=== PATIENT | male | born 1935 | race Caucasian/White ===

== ENCOUNTER 2018-01-08 14:24 | Observation (INO) | payer MEDICARE, OTHER ==
[~2018-01-08 14:24] MED LIST: ISOVUE-370 76%-LOCM 1 ML ONE
[2018-01-08 15:09] LABS: #Eosinphils 0.3 thou/uL (0.0-0.7); #Lymphocytes 1.3 thou/uL (1.20-3.40); #Monocytes 0.5 thou/uL (0.11-0.59); #Neutrophils 4.7 thou/uL (1.40-6.50); %Basophils 0.6 % (0.0-1.0); %Eosinophils 4.2 % (0.0-10.0); %Lymphocytes 19.1 % (21.0-51.0); %Monocytes 7.6 % (0.0-10.0); %Neutrophils 68.5 % (42.0-75.0); Mean Corpuscular HGB CONC 33.6 g/dL (32.0-36.0); Mean Corpuscular Hemoglobin 33.6 pg (27.0-31.0); Mean Corpuscular Volume 99.7 fl (80.0-94.0); Mean Platelet Volume 6.7 fL (7.4-10.4); Platelet Count 133 thou/uL (130-400); RBC Distribution Width 12.1 % (11.5-14.5); Red Blood Cell (RBC) Count 4.16 mill/uL (4.70-6.10); White Blood Cell (WBC) Count 6.9 thou/uL (4.8-10.8)
[2018-01-08 15:30] LABS: ALT (SGPT) 43 U/L (8-55); AST (SGOT) 34 U/L (5-34); Albumin 3.9 g/dL (3.4-4.8); Alkaline Phosphatase 61 U/L (40-150); Anion Gap 13 mmol/L (10-20); BUN (Urea Nitrogen) 27 mg/dL (8.4-25.7); Bilirubin, Total 0.6 mg/dL (0.2-1.2); Calc. Creatinine Clearance 0 mL/min (70-130); Calcium 9.6 mg/dL (7.8-10.44); Carbon Dioxide 25 mmol/L (23-31); Chloride 105 mmol/L (98-107); Estimated GFR-MDRD 65; Glucose 129 mg/dL (83-110); Potassium 4.4 mmol/L (3.5-5.1); Protein, Total 6.9 g/dL (5.8-8.1); Sodium 139 mmol/L (136-145)
[2018-01-08 15:35] LABS: Troponin I 0.011 ng/mL (< 0.028)
[2018-01-08 15:44] LABS: CKMB 21.6 ng/mL (0-6.6)
--- NOTE | 2018-01-08 15:52 | RAD ---
CHEST 1 VIEW: Date: 01/08/18 HISTORY: Chest pain. COMPARISON: Chest radiograph dated 03/11/14. FINDINGS: Heart size mildly enlarged. Chronic interstitial markings in the lung bases. No pneumothorax. No larg e effusion. No acute focal osseous abnormality. IMPRESSION: Chronic changes and cardiomegaly. POS: OFF
--- NOTE | 2018-01-08 17:42 | CT ---
CTA THORAX WITH CONTRAST: 01/08/18 (Computed Tomographic Angiography, chest(noncoronary) with contrast material, and image postprocessin g) (PE protocol) HISTORY: 82-year-old male with acute chest pain and dyspnea. TECHNIQUE: IV injection of iodinated contrast. Scan acquisition timing attempted to coincide with iodinated contrast bolus reaching maximal density in pulmonary arteries. 3D MIP reconstructions. FINDINGS: There is gynecomastia. No evidence of pulmonary thromboembolism. No thoracic aortic aneurysm or disse ction. There is ectasia and tortuosity of the thoracic aorta. No consolidation, ground glass densitie s, pleural effusion, or pneumothorax. Tiny noncalcified pulmonary nodule approximately 3-4 mm in size at the far lateral aspect of right middle lobe, abutting the undersurface of the right minor fissure , is probably an intrapulmonary lymph node. Borderline or mild cardiomegaly. There is multilevel high grade degenerative disc disease throughout the thoracic spine. 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 No mediastinal or hilar lymphadenopathy. No pericardial effusion. IMPRESSION: 1. No pulmonary thromboembolism. 2. Ectasia, tortuosity, and atherosclerosis of the thoracic aorta. 3. Thoracic spondylosis. 4. Gynecomastia. herminia[] POS: COLLETTE
[2018-01-08] MEDS ORDERED: Aspirin 325 MG TAB ONE (21:02)
[2018-01-08 21:04] LABS: Troponin I Less than 0.010 ng/mL (< 0.028)
[2018-01-08 21:07] LABS: CKMB 16.6 ng/mL (0-6.6); Critical Call CKMBM RESULT DECREASING
[2018-01-08] MEDS ORDERED: Gabapentin 400 MG CAP PO SCH (21:15)
[2018-01-08] MEDS ORDERED: Acetaminophen 325 MG TAB PO PRN ×2 (22:11→22:12)
[2018-01-08] MEDS ORDERED: HYDROcodone/Acetaminophen 5/325 mg Tablet PO PRN (22:11)
[2018-01-08] MEDS ORDERED: Ondansetron ODT 4 MG TAB SL PRN (22:12)
[2018-01-08] MEDS ORDERED: Ondansetron HCl/PF 4 MG/2 ML Vial IVP PRN (22:12)
[2018-01-08] MEDS ORDERED: Enoxaparin Sodium 30 MG/0.3 ML SYRINGE SC SCH (22:15)
--- NOTE | 2018-01-09 01:35 | HP ---
DATE OF ADMISSION: 01/08/2018 TIME OF SERVICE: 22:15 CHIEF COMPLAINT: Chest discomfort, chest pain. HISTORY OF PRESENT ILLNESS: Mr. Landers is an 82-year-old white male with history of hypertension, juan diego ropathy, BPH. He also relates a history of coronary artery disease followed by Dr. Jake Levin, hypothyroidism, seizure disorder, who presents to the emergency department with complaints of chest p ain starting at 08:21. Patient states he got up in the morning, was doing his normal activities with out any difficulty and developed left-sided chest pain near the midclavicular area. He stated he fel t like a sharp pain. He had been lifting boxes the day before, initially thought he just strained so mething. The pain seemed to resolve on its own without much intervention. Then, 01/08 on the day of admission, the patient developed worsening chest pain seemed to be worse with deep inspiration, but w as certainly more intense than the day before. Denies any shortness of breath, no PND, orthopnea, no sweats or diaphoresis, no nausea or vomiting. The patient himself denies previous cardiac history; however, he has seen Dr. Levin and did have an echocardiogram that showed what sounds like apical hypokinesis. He does have some degree of coronary artery disease. Workup in the emergency department was negative except for an elevated CK and a slightly increased CK -MB with negative troponins. We subsequently called for admit. PAST SURGICAL HISTORY: Significant for, 1. TURP. 2. Back surgeries. 3. Bilateral cataract replacement. 3. Left shoulder repair. 4. Hernia repair. 5. PTCA about 5 years ago, he is not sure if he had a stent or not. HOME MEDICATIONS: 1. Tramadol 50 mg p.o. t.i.d. p.r.n. 2. Vitamin B6 of 100 mg daily. 3. CoQ10 of 200 mg p.o. q.p.m. 4. Atorvastatin 40 mg p.o. at bedtime. 5. Fish oil 300 mg p.o. at bedtime. 6. Toprol XL 25 mg p.o. at bedtime. 7. Levothyroxine 75 mcg daily. 8. Ipratropium nasal spray 0.03% two puffs nasal b.i.d. 9. Gabapentin 400 mg p.o. q.i.d. 10. Cardura 8 mg p.o. at bedtime. 11. Aspirin 81 mg daily. 12. Donepezil 10 mg p.o. q.p.m. ALLERGIES: SULFA AND CARBAMAZEPINE. Does not recall what the reactions were. He thinks that the ra sh. FAMILY HISTORY: Negative for clotting or bleeding disorder, no immune dysfunction. SOCIAL HISTORY: Negative for habits x3. He is . His daughter does accompany him. His was recently admitted to the hospital, I cared for her then. She is at home and requires a large robyn unt of assistance. REVIEW OF SYSTEMS: A 10-point review of systems was performed and is negative for all systems except as stated as per HPI. PHYSICAL EXAMINATION: VITAL SIGNS: Temperature current is 97.6, pulse 61, blood pressure 175/97 initially, now down to 142 /67, respiratory 18, satting 94% on room air, 99% on 2 liters nasal cannula. GENERAL: He is awake. He is alert. He is oriented x3, well-developed, well-nourished, age appropri ate appearing elderly white male, appears to be in no acute distress. HEENT: Normocephalic and atraumatic. Pupils equal, round, react to light bilaterally, mucous membra enrique are moist. No visible lesions or thrush. NECK: Supple without lymphadenopathy, JVD, or thyromegaly. He has normal carotid upstrokes without bruits. LUNGS: Clear to auscultation bilaterally. No wheezes, no rales, or rhonchi. Good air movement. Sy mmetric chest excursion. There is no prolonged expiratory phase. CARDIOVASCULAR: Normal cardiac and regular. He has normal S1 and S2. No S3, S4. He has a holosyst olic murmur heard at the apex, was slightly hard, now just a little better at the right upper sternal border. I do not hear any systolic ejection murmurs. ABDOMEN: Soft. There is nontender, nondistended. He has got good bowel sounds in all four quadrant s. There is no rebound, rigidity, or guarding. EXTREMITIES: No cyanosis or clubbing. He does have 1+ edema in bilateral extremities in the tibia l evel. He has got thready palpable pulses in the dorsalis pedis and posterior tibial arteries. SKIN: Otherwise warm, moist, and well perfused. There are no other rashes or lesions. MUSCULOSKELETAL: Normal to inspection. He has no joint inflammation or palpable effusions. NEUROLOGIC: Cranial nerves II-XII are grossly intact. No focal neurologic deficits. LABORATORY DATA: Sodium 139, potassium 4.4, chloride 105, bicarb 25, BUN 27, creatinine 1.08, glucos e 129, calcium 9.6. Liver function fairly within normal limits. CBC showed a white count of 6.9 with normal differential, hemoglobin is 14.0, hematocrit is 41.5, and platelet count is 133,000. CK was slightly elevated at 442, CK-MB was 21.6 and repeat down to 16.6. Troponin I was 0.011 and no rmal and repeat was less than 0.010. BNP was slightly elevated at 149.4. D-dimer was slightly eleva nakul at 0.80. RADIOGRAPHIC STUDIES: Chest x-ray showed chronic changes and cardiomegaly. CT angiogram was negativ e for pulmonary embolus. ASSESSMENT AND PLAN: 1. Chest pain, likely noncardiac. Patient does have a history of coronary artery disease. We will place him on protective medicines, get serial cardiac biomarkers, and with echocardiogram in the [facility]. He was due for next week in Dr. Levin's office. We will ask Dr. Levin to see him. 2. History of hypertension. Patient will be on nitro paste. We will continue home medication inclu ding Toprol-XL and Cardura. 3. History of peripheral neuropathy, continue his gabapentin. 4. History of BPH on Cardura. 5. History of coronary artery disease, normal troponins at this time. We will watch him on the elisabet tor and watch his serial biomarkers. 6. Hypothyroidism on levothyroxine daily. We will check morning TSH. The patient was placed in observation on the observation unit. We will hold off and order any stress testing to be seen by Dr. Levin, but we will go and order the echo to be done in the morning.
[2018-01-09] MEDS: Nitroglycerin 2% Ointment 1 INCH/1 GM Packet TOP SCH ×3 (03:14→15:43)
[2018-01-09 04:33] LABS: #Basophils 0.1 thou/uL (0.0-0.2); #Eosinphils 0.4 thou/uL (0.0-0.7); #Lymphocytes 1.7 thou/uL (1.20-3.40); #Monocytes 0.6 thou/uL (0.11-0.59); #Neutrophils 4.9 thou/uL (1.40-6.50); %Basophils 0.7 % (0.0-1.0); %Eosinophils 5.8 % (0.0-10.0); %Lymphocytes 21.9 % (21.0-51.0); %Monocytes 7.9 % (0.0-10.0); %Neutrophils 63.7 % (42.0-75.0); Hemoglobin 14.1 g/dL (14.0-18.0); Mean Corpuscular HGB CONC 34.4 g/dL (32.0-36.0); Mean Corpuscular Hemoglobin 33.9 pg (27.0-31.0); Mean Corpuscular Volume 98.6 fl (80.0-94.0); Mean Platelet Volume 6.5 fL (7.4-10.4); Platelet Count 125 thou/uL (130-400); RBC Distribution Width 12.2 % (11.5-14.5); Red Blood Cell (RBC) Count 4.17 mill/uL (4.70-6.10); White Blood Cell (WBC) Count 7.7 thou/uL (4.8-10.8)
[2018-01-09 04:50] LABS: Anion Gap 11 mmol/L (10-20); BUN (Urea Nitrogen) 22 mg/dL (8.4-25.7); CK (CPK) 304 U/L (30-200); Calc. Creatinine Clearance 92 mL/min (70-130); Calcium 9.4 mg/dL (7.8-10.44); Carbon Dioxide 27 mmol/L (23-31); Chloride 107 mmol/L (98-107); Cholesterol 131 mg/dl (< 200 Desired); Estimated GFR-MDRD 75; Glucose 92 mg/dL (83-110); HDL Cholesterol 44 mg/dL (>60 Neg Risk); LDL Cholesterol, Calculated 70 mg/dL; Magnesium 2.3 mg/dL (1.6-2.6); Sodium 141 mmol/L (136-145); Triglycerides 83 mg/dL (Less than 150)
[2018-01-09] MEDS ORDERED: Levothyroxine Sodium 75 MCG TAB PO SCH (06:00)
[2018-01-09] MEDS ORDERED: Naproxen 500 MG TAB PO SCH (09:00)
[2018-01-09] MEDS ORDERED: Aspirin 325 MG TAB PO SCH (09:00)
[2018-01-09] MEDS ORDERED: Famotidine 20 MG TAB PO SCH (09:00)
[2018-01-09] MEDS: Ipratropium Bromide 0.03% Nasal Inhaler 30 ml Bottle EA NARE SCH ×2 (09:16→15:42)
[2018-01-09] MEDS: Gabapentin 400 MG CAP PO SCH ×3 (09:16→15:45)
[2018-01-09 15:54] VITALS: TEMP 97.3
[2018-01-09] MEDS ORDERED: Regadenoson 0.4 MG/5 ML SYRINGE ONE (15:59)
[2018-01-09] MEDS ORDERED: Simvastatin 5 MG TAB PO SCH (17:00)
--- NOTE | 2018-01-09 17:11 | NM ---
NUCLEAR MEDICINE MYOCARDIAL PERFUSION SCAN 01/09/18 HISTORY: Chest pain. TECHNIQUE: SPECT imaging of the left ventricular myocardium is obtained during rest and stress following the int ravenous administration of 27.0 and 9.0 millicuries technetium 99m labeled Sestamibi respectively. FINDINGS: There is a small fixed defect at the level of the cardiac apex which could represent an area of prior infarction or physiologic thinning. The latter is favored as left ventricular wall motion appears no rmal. No reversible defect is seen. Left ventricular ejection fraction is 72%. TID is 1.1. EDV is 109 mL and ESV is 30 mL. IMPRESSION: Small fixed defect at the cardiac apex. No reversible defect seen. Normal left ventricular wall motio n and ejection fraction. POS: COLLETTE
[2018-01-09 17:18] VITALS: BP 150/77
[2018-01-09] MEDS ORDERED: Doxazosin Mesylate 4 MG TAB PO SCH (21:00)
--- NOTE | 2018-01-09 22:19 | DIS ---
DATE OF ADMISSION: 01/08/2018 DATE OF DISCHARGE: 01/09/2018 PRIMARY CARE PHYSICIAN: Jaja Medina MD DISCHARGE DIAGNOSIS: Chest pain. CONDITION OF PATIENT ON THE DAY OF DISCHARGE: Stable. I assessed Mr. Landers on the day of discharge. He denies any chest pain or shortness of breath. Vital signs are stable. S1 and S2 are heard, reg ular. Lungs are clear to auscultation bilaterally. DISCHARGE MEDICATIONS: No change was made to his preadmission home medications as dictated on histor y and physical note from 01/08/2018. HOSPITAL COURSE: Mr. Landers is a pleasant 82-year-old gentleman who was admitted to [facility] on observation status on 01/08/[address] angiogram of the chest did n ot reveal any pulmonary thromboembolism. He had ectasia, tortuosity, and atherosclerosis of the thor acic aorta, thoracic spondylosis, and gynecomastia. He had a nuclear stress test on 01/09/2018, which showed a small fixed defect at the cardiac apex. T here was no reversible defect. Left ventricle ejection fraction was 72%. He was seen by Cardiology Service, Dr. Levin, and is being discharged home in a stable condition. Many thanks for allowing me to participate in your patient's care. Please feel free to contact me wi th any questions or concerns. DISCHARGE DESTINATION: Home.
--- NOTE | 2018-01-26 00:25 | EKG ---
Test Reason : Blood Pressure : / mmHG Vent. Rate : 062 BPM Atrial Rate : 062 BPM P-R Int : 332 ms QRS Dur : 070 ms QT Int : 402 ms P-R-T Axes : 056 011 -02 degrees QTc Int : 408 ms Sinus rhythm with 1st degree A-V block Otherwise normal ECG Confirmed by EVER ANGELO ([id number]), web content editor WANDER JULES ([id number]) on 01/26/2018 12:24:30 AM Referred By: Confirmed By:EVER ANGELO
--- NOTE | 2018-02-27 13:36 | STRESS ---
Acquisition Time: 2018-01-09 13:43:02 Total Exercise Time: 00:01:00 Test Indications: CHEST PAIN Medications: Protocol: LEXISCAN Max HR: 086 BPM 62% of Pred: 138 BPM Max BP: 170/070 mmHG Max Work Load: 1.0 METS RESTING ECG: SINUS BRADYCARDIA AT 57 BPM WITH FIRST DEGREE AV BLOCK SYMPTOMS: NONE NORMAL BP RESPONSE ECTOPY: NONE ECG STRESS: NO SIGNIFICANT CHANGES INTERPRETATION: NEGATIVE ECG/AWAIT NUCLEAR IMAGES FOR DEFINITIVE DIAGNOSIS Confirmed by DR. Kumar ALANIZ ([id number]), script editor HU LEWIS ([id number]) on 02/27/2018 1:35:47 PM Referred By: MD Juan TAFOYA Confirmed By:DR. Kumar ALANIZ
== END 2018-01-09 18:37 | disposition home or self-care (01) ==
LOC: ERS 14:24 → 2SW 22:07
PROVIDERS: ADMIT Internal Medicine; ATTEND Internal Medicine
DX: R07.89 Other chest pain (principal); I10 Essential (primary) hypertension; I25.10 Atherosclerotic heart disease of native coronary artery without angina pectoris; E03.9 Hypothyroidism, unspecified; G40.909 Epilepsy, unspecified, not intractable, without status epilepticus; G62.9 Polyneuropathy, unspecified; N40.0 Benign prostatic hyperplasia without lower urinary tract symptoms; Z79.82 Long term (current) use of aspirin; Z79.891 Long term (current) use of opiate analgesic; Z79.1 Long term (current) use of non-steroidal anti-inflammatories (NSAID); Z79.899 Other long term (current) drug therapy; Z88.2 Allergy status to sulfonamides; Z88.8 Allergy status to other drugs, medicaments and biological substances; Z98.41 Cataract extraction status, right eye; Z98.42 Cataract extraction status, left eye; Z96.1 Presence of intraocular lens; Z95.5 Presence of coronary angioplasty implant and graft; Z98.890 Other specified postprocedural states
CPT/HCPCS: 71045; 71275; 78452; 80048; 80053; 80061; 82550 ×2; 82553 ×2; 83735; 83880; 84484 ×2; 85025 ×2; 85379; 93005; 93017; 93306; 97139; 99285; A9500; 36415; 96372; G0378; J1650; J2785

== ENCOUNTER 2018-04-15 10:15 | Outpatient (CLI) | payer MEDICARE, OTHER ==
[2018-04-15 12:22] LABS: Hemoglobin 14.1 g/dL (14.0-18.0); Mean Corpuscular HGB CONC 33.2 g/dL (32.0-36.0); Mean Corpuscular Hemoglobin 32.1 pg (27.0-31.0); Mean Corpuscular Volume 96.9 fL (78.0-98.0); Mean Platelet Volume 7.4 fL (7.4-10.4); Platelet Count 120 thou/uL (130-400); RBC Distribution Width 12.1 % (11.5-14.5); Red Blood Cell (RBC) Count 4.39 mill/uL (4.70-6.10); White Blood Cell (WBC) Count 5.7 thou/uL (4.8-10.8)
[2018-04-15 12:50] LABS: Anion Gap 13 mmol/L (10-20); BUN (Urea Nitrogen) 26 mg/dL (8.4-25.7); Calc. Creatinine Clearance 0 mL/min (70-130); Calcium 9.6 mg/dL (7.8-10.44); Carbon Dioxide 26 mmol/L (23-31); Chloride 104 mmol/L (98-107); Estimated GFR-MDRD 59; Glucose 108 mg/dL (83-110); Potassium 4.6 mmol/L (3.5-5.1); Sodium 138 mmol/L (136-145)
== END 2018-04-15 10:16 | disposition home or self-care (01) ==
LOC: LABBT 10:15
PROVIDERS: ATTEND Neurological Surgery
DX: Z01.818 Encounter for other preprocedural examination (principal); M48.061 Spinal stenosis, lumbar region without neurogenic claudication
CPT/HCPCS: 80048; 85027; 93005; 93010

== ENCOUNTER 2018-04-21 07:17 | Observation (INO) | payer MEDICARE, OTHER ==
[2018-04-15 10:28] VITALS: BMI 33.0
[2018-04-21] MEDS ORDERED: CEFAZOLIN/Water 2 GM/20 ML SYRINGE ONE (07:46)
[2018-04-21] MEDS ORDERED: Fentanyl 250 MCG/5 ML VIAL ONE (08:55)
[2018-04-21] MEDS ORDERED: ePHEDrine/0.9% NaCl/PF SYRINGE 50 mg/10 ml ONE ×2 (10:03→14:59)
[2018-04-21] MEDS ORDERED: Glycopyrrolate 0.2 MG/ML 5 ML SYRINGE ONE ×2 (10:03→14:59)
[2018-04-21] MEDS ORDERED: Ondansetron HCl/PF 4 MG/2 ML Vial IVP PRN ×3 (10:43→14:00)
[2018-04-21] MEDS ORDERED: Promethazine HCl 25 MG/ML VIAL IM PRN ×2 (10:43→13:13)
[2018-04-21] MEDS ORDERED: Promethazine HCl 25 MG/ML VIAL SLOW IVP PRN (10:43)
--- NOTE | 2018-04-21 11:04 | OP ---
DATE OF PROCEDURE: 04/21/2018 SURGEON: Hua Baltazar M.D. HOLLOW WARE MAKER: Marquita Davies PROCEDURE: Right L5-S1 laminectomy, facetectomy, and foraminotomy. PROCEDURE IN DETAIL: The patient was brought to the operating room and intubated, rolled in the pron e position on gel-filled chest rolls. The previous incision was reopened exposing L5 and S1 and our level was confirmed by x-ray and a very large right L5-S1 facet complex which was debrided extensivel y. An L5-S1 central laminectomy was performed and then turned to the right. We completely decompres sed the right L5-S1 lateral recess and the right L5 neural foramen. After complete decompression was secured, the wound was extensively irrigated, immaculate hemostasis was achieved. Vancomycin powder was applied and the wound was closed in anatomic layers.
[2018-04-21] MEDS ORDERED: diphenhydrAMINE 25 MG CAP PO PRN (13:13)
[2018-04-21] MEDS ORDERED: diphenhydrAMINE 50 MG/ML VIAL IVP PRN (13:13)
[2018-04-21] MEDS ORDERED: Promethazine 25 MG TAB PO PRN (13:13)
[2018-04-21] MEDS ORDERED: Mag-Al 1200 mg/1200 mg/30 ML UDCUP PO PRN (13:13)
[2018-04-21] MEDS ORDERED: HYDROcodone/Acetaminophen 10/325 mg Tablet PO PRN ×2 (13:13)
[2018-04-21] MEDS ORDERED: tiZANidine HCl 4 MG TAB PO PRN (13:13)
[2018-04-21] MEDS ORDERED: traMADol HCl 50 MG TAB PO PRN ×2 (13:13)
[2018-04-21] MEDS ORDERED: Promethazine HCl 12.5 MG SUPP PR PRN (13:13)
[2018-04-21] MEDS ORDERED: Milk Of Magnesia 30 ML UDCUP PO PRN (13:13)
[2018-04-21] MEDS ORDERED: Morphine 4 MG/ML Carpuject SLOW IVP PRN (13:13)
[2018-04-21] MEDS ORDERED: Senokot 8.6 MG TAB PO PRN (14:00)
[2018-04-21] MEDS ORDERED: hydrALAZINE 20 MG/ML VIAL SLOW IVP PRN (14:00)
[2018-04-21] MEDS ORDERED: Benzonatate 100 MG CAP PO PRN (14:00)
[2018-04-21] MEDS ORDERED: cloNIDine 0.1 MG TAB PO PRN (14:00)
[2018-04-21] MEDS ORDERED: traZODone HCl 50 MG TAB PO PRN (14:00)
[2018-04-21] MEDS ORDERED: Diabetic Tussin 200 MG/10 ML UDCUP PO PRN (14:00)
[2018-04-21] MEDS ORDERED: Bisacodyl 5 MG TAB PO PRN (14:00)
[2018-04-21] MEDS ORDERED: Calcium Carbonate 500 MG ChewTAB PO PRN (14:00)
[2018-04-21] MEDS ORDERED: Loratadine 10 MG TAB PO PRN (14:00)
[2018-04-21] MEDS ORDERED: Acetaminophen 325 MG TAB PO PRN (14:00)
[2018-04-21] MEDS ORDERED: Nitroglycerin 0.4 MG TAB (25 Tab Bottle) SL PRN (14:00)
--- NOTE | 2018-04-21 14:15 | PDOC.PN ---
- Subjective Encounter Start Date: 04/21/18 Encounter Start Time: 14:14 Subjective: pt gavin nd examined. IM team consulted for medical management. -: s/p Lumbar laminectomy today. no chest pain/SOB -: has been having some difficulty urination w starting. - Objective MAR Reviewed: Yes Vital Signs & Weight: Vital Signs (12 hours) Temp Pulse Resp BP Pulse Ox 04/21/18 12:30 97.5 F L 78 16 173/78 H 94 L Weight Weight 230 lb Additional Labs: labs reviewed Phys Exam - Physical Examination Constitutional: NAD HEENT: PERRLA, moist MMs, sclera anicteric, oral pharynx no lesions Neck: no nodes, no JVD, supple, full ROM Respiratory: no wheezing, no rales, no rhonchi, clear to auscultation bilateral Cardiovascular: RRR, no significant murmur, no rub Gastrointestinal: soft, non-tender, no distention, positive bowel sounds Musculoskeletal: no edema, pulses present Neurological: non-focal, normal sensation, moves all 4 limbs Psychiatric: normal affect, A&O x 3 Skin: no rash Dx/Plan (1) Urinary retention Code(s): R33.9 - RETENTION OF URINE, UNSPECIFIED Status: Acute (2) HTN (hypertension) Code(s): I10 - ESSENTIAL (PRIMARY) HYPERTENSION Status: Acute Qualifiers: Hypertension type: essential hypertension Qualified Code(s): I10 - Essential (primary) hypertension (3) CAD (coronary artery disease) Code(s): I25.10 - ATHSCL HEART DISEASE OF [place] CORONARY ARTERY W/O ANG PCTRS Status: Acute (4) Seizure disorder Code(s): G40.909 - EPILEPSY, UNSP, NOT INTRACTABLE, WITHOUT STATUS EPILEPTICUS Status: Acute (5) Neuropathy Code(s): G62.9 - POLYNEUROPATHY, UNSPECIFIED Status: Acute (6) BPH (benign prostatic hyperplasia) Code(s): N40.0 - BENIGN PROSTATIC HYPERPLASIA WITHOUT LOWER URINRY TRACT SYMP Status: Acute (7) S/P lumbar laminectomy Code(s): Z98.890 - OTHER SPECIFIED POSTPROCEDURAL STATES Status: Acute - Plan PT/OT, out of bed/ambulate, DVT proph w/SCDs If no urination ,will do PVR and Gorman if > 300 ml. -: BP very high.likley due to Sx few hours ago,restart Metoprolol w first dose -: restart rest of the home meds. reviewed -: am labs -: OT,PT,Rehab.Will follow * . Review of Systems - Review of Systems Constitutional: negative: fever, chills, sweats, weakness, malaise, other Eyes: negative: Pain, Vision Change, Conjunctivae Inflammation, Eyelid Inflammation, Redness, Other Respiratory: negative: Cough, Dry, Shortness of Breath, Hemoptysis, SOB with Excertion, Pleuritic Pain, Sputum, Wheezing Cardiovascular: negative: chest pain, palpitations, orthopnea, paroxysmal nocturnal dyspnea, edema, light headedness, other Gastrointestinal: negative: Nausea, Vomiting, Abdominal Pain, Diarrhea, Constipation, Melena, Hematochezia, Other Genitourinary: Retention. negative: Dysuria, Frequency, Incontinence, Hematuria , Other Musculoskeletal: negative: Neck Pain, Shoulder Pain, Arm Pain, Back Pain, Hand Pain, Leg Pain, Foot Pain, Other Skin: negative: Rash, Lesions, Dale, Bruising, Other Neurological: negative: Weakness, Numbness, Incoordination, Change in Speech, Confusion, Seizures, Other - Medications/Allergies Allergies/Adverse Reactions: Allergies Allergy/AdvReac Type Severity Reaction Status Date / Time carbamazepine [From Tegretol] Allergy Rash Verified 04/15/18 10:29 Sulfa (Sulfonamide Allergy Rash Verified 04/15/18 10:29 Antibiotics) Medications: Current Medications Acetaminophen (Tylenol) 650 mg PO Q4H PRN PRN Reason: Headache/Fever or Mild Pain Hydrocodone Bitart/Acetaminophen (Coello 10/325) 1 tab PO Q4H PRN PRN Reason: PAIN (1-3) Hydrocodone Bitart/Acetaminophen (Coello 10/325) 2 tab PO Q4H PRN PRN Reason: PAIN (4-6) Al Hydroxide/Mg Hydroxide (Maalox) 30 ml PO Q4H PRN PRN Reason: Heartburn or Indigestion Ascorbic Acid (Vitamin C) 500 mg PO 1200 ALIVIA Aspirin (Aspirin Chewable) 81 mg PO HS ALIVIA Atorvastatin Calcium (Lipitor) 40 mg PO HS ALIVIA Benzonatate (Tessalon) 100 mg PO Q4H PRN PRN Reason: Cough Bisacodyl (Dulcolax) 10 mg PO DAILYPRN PRN PRN Reason: Constipation Calcium Carbonate (Tums) 1,000 mg PO Q4H PRN PRN Reason: Heartburn or Indigestion Cefazolin Sodium (Ancef) 2 gm SLOW IVP Q8H [facility] Stop: 04/22/18 00:01 Cetirizine HCl (Zyrtec) 10 mg PO DAILY [facility] Clonidine (Catapres) 0.1 mg PO Q4H PRN PRN Reason: Systolic BP > 160 Diphenhydramine HCl (Benadryl) 25 mg PO Q6H PRN PRN Reason: Itching Diphenhydramine HCl (Benadryl) 25 mg IVP Q6H PRN PRN Reason: Itching Donepezil HCl (Aricept) 10 mg PO HS [facility] Guaifenesin (Robitussin Sf) 200 mg PO Q4H PRN PRN Reason: Cough Hydralazine HCl (Apresoline) 10 mg SLOW IVP Q4H PRN PRN Reason: Systolic BP > 170 Sodium Chloride (Normal Saline 0.9%) 1,000 mls @ 75 mls/hr IV .[id number] [facility] Ipratropium [place] (Atrovent 0.03%) ml EA NARE 0730,1700 [facility] Levothyroxine Sodium (Synthroid) 75 mcg PO DAILY [facility] Loratadine (Claritin) 10 mg PO DAILYPRN PRN PRN Reason: Sinus Symptoms Lysine (L-Lysine) 1,000 mg PO 0730,1700 [facility] Magnesium Hydroxide (Milk Of Magnesium) 30 ml PO Q12H PRN PRN Reason: Constipation Metoprolol Succinate (Toprol Xl) 50 mg PO DAILY [facility] Morphine Sulfate (Morphine) 2 mg SLOW IVP Q1H PRN PRN Reason: Moderate Breakthrough Pain Morphine Sulfate (Morphine Sulfate) 4 mg SLOW IVP Q1H PRN PRN Reason: SEVERE BREAKTHROUGH PAIN Nitroglycerin (Nitrostat) 0.4 mg SL Q5MIN PRN PRN Reason: Chest Pain Non-Formulary Medication (B-Complex With Vitamin C [B-Complex With Vitamin C]) 1 tablet PO 1700 [facility] Non-Formulary Medication (Cholecalciferol (Vitamin D3) [Vitamin D3]) 1,000 unit PO 1200 [facility] Non-Formulary Medication (Doxazosin Mesylate [Cardura]) 8 mg PO HS [facility] Non-Formulary Medication (Gabapentin [Gabapentin]) 1,200 mg PO 0730,12,17,21 [facility] Non-Formulary Medication (Lactobacillus Acidophilus [Acidophilus]) 1 cap PO 0730 [facility] Non-Formulary Medication ([place]-3 Fatty Acids [Fish Oil]) 900 mg PO HS [facility] Non-Formulary Medication (Ubidecarenone [Co Q-10]) 100 mg PO QPM [facility] Ondansetron HCl (Zofran) 4 mg IVP Q8H PRN PRN Reason: Nausea/Vomiting Ondansetron HCl (Zofran) 4 mg IVP Q6H PRN PRN Reason: Nausea/Vomiting Promethazine HCl (Phenergan) 12.5 mg IM Q4H PRN PRN Reason: Nausea/Vomiting Promethazine HCl (Phenergan) 12.5 mg PO Q4H PRN PRN Reason: Nausea/Vomiting Promethazine HCl (Phenergan Suppository) 12.5 mg W[place] Q4H PRN PRN Reason: Nausea/Vomiting Pyridoxine HCl (Vitamin B 6) 100 mg PO 1200 [facility] Senna (Senokot) 2 tab PO HSPRN PRN PRN Reason: Constipation Sodium Chloride (Flush - Normal Saline) 10 ml IVF Q12HR ALIVIA Sodium Chloride (Flush - Normal Saline) 10 ml IVF PRN PRN PRN Reason: Saline Flush Tizanidine HCl (Zanaflex) 4 mg PO Q6H PRN PRN Reason: MUSCLE SPASM Tramadol HCl (Ultram) 50 mg PO Q6H PRN PRN Reason: PAIN (1-3) Tramadol HCl (Ultram) 100 mg PO Q6H PRN PRN Reason: PAIN (4-6) Trazodone HCl (Desyrel) 50 mg PO HSPRN PRN PRN Reason: Insomnia
[2018-04-21] MEDS ORDERED: Dexamethasone 20 MG/5 ML VIAL ONE (14:59)
[2018-04-21] MEDS ORDERED: Ondansetron HCl/PF 4 MG/2 ML Vial ONE (14:59)
[2018-04-21] MEDS ORDERED: PROPOFOL 200 MG/20 ML VIAL ONE (14:59)
[2018-04-21] MEDS ORDERED: Lidocaine 1% PF 5 ML VIAL ONE (14:59)
[2018-04-21] MEDS ORDERED: PHENYLEPHRINE-NS 100 MCG/ML 10 ML SYRINGE ONE (14:59)
[2018-04-21] MEDS: Sodium Chloride 0.9% 1,000 ML IV SCH (15:00)
[2018-04-21] MEDS ORDERED: Gabapentin 400 MG CAP PO SCH ×2 (17:00→21:45)
[2018-04-21] MEDS ORDERED: Stress 600 With Zinc 1 TAB PO SCH (17:00)
[2018-04-21] MEDS: Lysine 500 MG TAB PO SCH (17:15)
[2018-04-21] MEDS: CEFAZOLIN/Water 2 GM/20 ML SYRINGE SLOW IVP SCH (17:59)
[2018-04-21] MEDS: Ipratropium Bromide 0.03% Nasal Inhaler 30 ml Bottle EA NARE SCH (18:02)
[2018-04-21] MEDS ORDERED: Doxazosin Mesylate 4 MG TAB PO SCH (21:00)
[2018-04-21] MEDS ORDERED: Donepezil HCl 10 MG TAB PO SCH (21:00)
[2018-04-21] MEDS ORDERED: Ubidecarenone 50 MG CAP PO SCH (21:00)
[2018-04-21] MEDS ORDERED: Atorvastatin Calcium 40 MG TAB PO SCH (21:00)
[2018-04-22] MEDS: CEFAZOLIN/Water 2 GM/20 ML SYRINGE SLOW IVP SCH (00:02)
[2018-04-22] MEDS: Sodium Chloride 0.9% 1,000 ML IV SCH (01:46)
[2018-04-22] MEDS ORDERED: Levothyroxine Sodium 75 MCG TAB PO SCH (06:00)
[2018-04-22 06:12] LABS: Anion Gap 13 mmol/L (10-20); BUN (Urea Nitrogen) 19 mg/dL (8.4-25.7); Calc. Creatinine Clearance 78 mL/min (70-130); Calcium 9.5 mg/dL (7.8-10.44); Carbon Dioxide 26 mmol/L (23-31); Chloride 102 mmol/L (98-107); Estimated GFR-MDRD 65; Glucose 134 mg/dL (83-110); Potassium 3.9 mmol/L (3.5-5.1); Sodium 137 mmol/L (136-145)
[2018-04-22 06:14] LABS: #Monocytes 0.9 thou/uL (0.11-0.59); #Neutrophils 11.1 thou/uL (1.40-6.50); %Basophils 0.2 % (0.0-1.0); %Eosinophils 0.3 % (0.0-10.0); %Lymphocytes 7.7 % (21.0-51.0); %Monocytes 6.8 % (0.0-10.0); Hemoglobin 13.4 g/dL (14.0-18.0); Mean Corpuscular HGB CONC 32.7 g/dL (32.0-36.0); Mean Corpuscular Hemoglobin 31.9 pg (27.0-31.0); Mean Corpuscular Volume 97.5 fL (78.0-98.0); Mean Platelet Volume 6.8 fL (7.4-10.4); Platelet Count 142 thou/uL (130-400); RBC Distribution Width 12.2 % (11.5-14.5)
[2018-04-22] MEDS: Gabapentin 400 MG CAP PO SCH ×2 (06:42→11:46)
[2018-04-22] MEDS: Ipratropium Bromide 0.03% Nasal Inhaler 30 ml Bottle EA NARE SCH (06:42)
[2018-04-22] MEDS: Lysine 500 MG TAB PO SCH (06:46)
[2018-04-22] MEDS ORDERED: Lactinex Tablet PO SCH (07:30)
[2018-04-22] MEDS ORDERED: Loratadine 10 MG TAB PO SCH (09:00)
[2018-04-22] MEDS ORDERED: Fish Oil 1,000 MG CAP PO SCH (09:00)
[2018-04-22 11:42] VITALS: BP 123/75; TEMP 98.7
[2018-04-22] MEDS ORDERED: Ascorbic Acid 500 mg Chewable Tablet PO SCH (12:00)
[2018-04-22] MEDS ORDERED: pyridOXINE 50 MG (B6) TAB PO SCH (12:00)
== END 2018-04-22 12:41 | disposition home or self-care (01) ==
LOC: SDC 07:17 → SURG B 11:31
PROVIDERS: ADMIT Neurological Surgery; ATTEND Neurological Surgery
PROC: 01NB0ZZ Release Lumbar Nerve, Open Approach (ICD-10-PCS; principal; 2018-04-21)
DX: M48.061 Spinal stenosis, lumbar region without neurogenic claudication (principal); M51.36 Other intervertebral disc degeneration, lumbar region; R33.9 Retention of urine, unspecified; G40.909 Epilepsy, unspecified, not intractable, without status epilepticus; G62.9 Polyneuropathy, unspecified; I25.10 Atherosclerotic heart disease of native coronary artery without angina pectoris; I10 Essential (primary) hypertension; E78.5 Hyperlipidemia, unspecified; N40.0 Benign prostatic hyperplasia without lower urinary tract symptoms; Z79.82 Long term (current) use of aspirin; Z79.1 Long term (current) use of non-steroidal anti-inflammatories (NSAID); Z79.899 Other long term (current) drug therapy; Z88.2 Allergy status to sulfonamides; Z88.8 Allergy status to other drugs, medicaments and biological substances; Z98.890 Other specified postprocedural states
CPT/HCPCS: 63047; 63048; 76001; 80048; 85025; 96374; 96375; 96376; 97116; 97139; 97530; G0378; G8978; G8979; 36415; A4216; J0131; J0360; J1100; J2001; J2405; J2704; J3010; J3370

== ENCOUNTER 2018-08-28 13:25 | Outpatient (CLI) | payer MEDICARE, OTHER ==
[2018-08-28] MEDS ORDERED: Gadobenate Dimeglumine 529 MG/1 ML (20ML VIAL) ONE (16:34)
--- NOTE | 2018-08-28 19:18 | MRI ---
MRI OF THE LUMBAR SPINE WITH AND WITHOUT CONTRAST: 08/28/18 Reference made to 08/02/16 exam. CLINICAL INDICATION: Lumbar radiculopathy. FINDINGS: Diffuse marrow heterogeneity is present with multilevel end plate irregularity, Schmorl's node format ion and chronic mild degenerative height loss of multiple lumbar segments. There is multilevel promin ent disc osteophyte formation and multilevel, bilateral degenerative facet hypertrophy, moderate to s evere in degree, greatest inferiorly. There is posterior decompression of the L3-4 through L5-S1 jim on. There is degenerative appearing marrow edema of the lumbar segments. L5-S1: There is moderate narrowing of the terminal thecal sac due to disc osteophyte formation. There is moderate left and mild to moderate right neural foraminal narrowing. L4-5: Broad based disc osteophyte results in moderate central canal stenosis when combined with bilat eral degenerative facet hypertrophy. There is moderate right and mild to moderate left neural foramin al narrowing. L3-4: Moderate to severe central canal stenosis is due to disc osteophyte and bilateral degenerative facet hypertrophy. Narrowing is predominantly in a transverse orientation given the posterior decompr ession. Moderate to severe right and moderate left neural foraminal stenosis is present. L2-3: There is mild central canal stenosis with a broad based disc osteophyte. Mild to moderate bilat eral neural foraminal narrowing present. L1-2: There is moderate central canal stenosis due to broad based disc osteophyte with mild to modera te bilateral neural foraminal narrowing. The conus medullaris terminates at the inferior L4 level. There is evidence of epidural fibrosis at the operative site which is most pronounced at L5-S1 which circumferentially encases the terminal thecal sac more notably posteriorly and to the right. This loaiza s encompass the right nerve root. From the subarticular and foraminal zones. IMPRESSION: Extensive multilevel degenerative changes at the postoperative lumbar spine. There is prominent epidural fibrosis inferiorly which does encase the postoperative thecal sac most n otably at L5-S1 as well as encasement of the right traversing S1 nerve root as well as the right L5 n erve root. POS: COLLETTE
== END 2018-08-28 13:26 | disposition home or self-care (01) ==
LOC: TBSIIMAG 13:25
PROVIDERS: ATTEND Neurological Surgery
DX: M47.26 Other spondylosis with radiculopathy, lumbar region (principal); G96.19 Other disorders of meninges, not elsewhere classified; Z98.890 Other specified postprocedural states
CPT/HCPCS: 72158

== ENCOUNTER 2019-05-08 15:03 | Outpatient (CLI) | payer MEDICARE, OTHER | END 2019-05-08 15:04 | disposition home or self-care (01) | LOC: CTENTCT 15:03 | PROVIDERS: ATTEND Specialist | DX: J31.0 Chronic rhinitis (principal) | CPT/HCPCS: 70486 ==

== ENCOUNTER 2021-04-06 15:56 | Outpatient (CLI) | payer MEDICARE, OTHER | END 2021-04-06 15:57 | disposition home or self-care (01) | LOC: BICRAD 15:56 | PROVIDERS: ATTEND Internal Medicine | DX: M25.561 Pain in right knee (principal) ==

== ENCOUNTER 2021-09-12 08:41 | Outpatient (CLI) | payer MEDICARE, OTHER | END 2021-09-12 08:42 | disposition home or self-care (01) | LOC: BICRAD 08:41 | PROVIDERS: ATTEND Internal Medicine | DX: M54.2 Cervicalgia (principal); M47.812 Spondylosis without myelopathy or radiculopathy, cervical region; M43.12 Spondylolisthesis, cervical region | CPT/HCPCS: 72040 ==

== ENCOUNTER 2021-10-05 09:12 | Outpatient (CLI) | payer MEDICARE, OTHER | END 2021-10-05 09:13 | disposition home or self-care (01) | LOC: MRI 09:12 | PROVIDERS: ATTEND Internal Medicine | DX: M47.22 Other spondylosis with radiculopathy, cervical region (principal); M48.02 Spinal stenosis, cervical region; M50.11 Cervical disc disorder with radiculopathy, high cervical region | CPT/HCPCS: 72141 ==

== ENCOUNTER 2022-03-21 13:06 | Inpatient (IN) | payer MEDICARE, OTHER ==
[2022-03-21] MEDS ORDERED: Aspirin Chewable 81 MG TAB ONE (13:41)
[2022-03-21 13:54] LABS: #Eosinphils 0.2 thou/uL (0.0-0.7); #Lymphocytes 0.9 thou/uL (1.20-3.40); #Monocytes 0.5 thou/uL (0.11-0.59); #Neutrophils 5.4 thou/uL (1.40-6.50); %Basophils 0.4 % (0.0-1.0); %Eosinophils 2.6 % (0.0-10.0); %Lymphocytes 12.8 % (21.0-51.0); %Monocytes 6.8 % (0.0-10.0); %Neutrophils 77.4 % (42.0-75.0); Hemoglobin 9.4 g/dL (14.0-18.0); Mean Corpuscular Volume 87.5 fL (78.0-98.0); Mean Platelet Volume 6.5 fL (7.4-10.4); Platelet Count 183 thou/uL (130-400); RBC Distribution Width 13.8 % (11.5-14.5); Red Blood Cell (RBC) Count 3.36 mill/uL (4.70-6.10)
[2022-03-21 14:21] LABS: ALT (SGPT) 27 U/L (8-55); AST (SGOT) 23 U/L (5-34); Albumin 3.9 g/dL (3.4-4.8); Alkaline Phosphatase 69 U/L (40-110); Anion Gap 12 mmol/L (10-20); BUN (Urea Nitrogen) 17 mg/dL (8.4-25.7); Bilirubin, Total 0.7 mg/dL (0.2-1.2); CK (CPK) 162 U/L (30-200); Calc. Creatinine Clearance 0 mL/min (70-130); Calcium 9.1 mg/dL (7.8-10.44); Carbon Dioxide 28 mmol/L (23-31); Chloride 101 mmol/L (98-107); Globulin 3.1 g/dL (2.4-3.5); Glucose 104 mg/dL (83-110); Lipase 22 U/L (8-78); Potassium 4.7 mmol/L (3.5-5.1); Sodium 136 mmol/L (136-145)
[2022-03-21 16:23] LABS: Reticulocyte Count 1.9 % (0.5-1.5)
[2022-03-21 16:33] LABS: INR-International Normal Ratio 1.1; PTT 33.9 sec (22.9-36.1); Prothrombin Time 13.9 sec (12.0-14.7)
[2022-03-21 16:48] LABS: Troponin I 0.013 ng/mL (< 0.028)
[2022-03-21 17:46] LABS: Iron Binding Capacity, Total 368 mcg/dL (261-462)
[2022-03-21 17:47] LABS: Iron 25 ug/dL (65-175)
[2022-03-21] MEDS ORDERED: Electrolyte Replacement Protocol FS PRN (18:45)
[2022-03-21] MEDS ORDERED: Electrolyte Replacement Protocol 1 EACH FS SCH (18:45)
[2022-03-21 20:36] LABS: Troponin I 0.013 ng/mL (< 0.028)
[2022-03-21] MEDS ORDERED: Doxazosin Mesylate 4 MG TAB PO SCH (21:00)
[2022-03-21] MEDS: Gabapentin 400 MG CAP PO SCH (21:52)
[2022-03-21] MEDS: Donepezil HCl 10 MG TAB PO SCH (21:53)
[2022-03-22 04:21] LABS: #Eosinphils 0.3 thou/uL (0.0-0.7); #Lymphocytes 1.2 thou/uL (1.20-3.40); #Monocytes 0.6 thou/uL (0.11-0.59); #Neutrophils 4.2 thou/uL (1.40-6.50); %Basophils 0.7 % (0.0-1.0); %Eosinophils 4.3 % (0.0-10.0); %Lymphocytes 19.2 % (21.0-51.0); %Monocytes 9.2 % (0.0-10.0); %Neutrophils 66.6 % (42.0-75.0); Mean Corpuscular HGB CONC 32.3 g/dL (32.0-36.0); Mean Corpuscular Hemoglobin 28.4 pg (27.0-31.0); Mean Corpuscular Volume 87.9 fL (78.0-98.0); Mean Platelet Volume 6.3 fL (7.4-10.4); Platelet Count 175 thou/uL (130-400); RBC Distribution Width 13.8 % (11.5-14.5); Red Blood Cell (RBC) Count 3.16 mill/uL (4.70-6.10); White Blood Cell (WBC) Count 6.4 thou/uL (4.8-10.8)
[2022-03-22 04:47] LABS: ALT (SGPT) 22 U/L (8-55); AST (SGOT) 19 U/L (5-34); Albumin 3.5 g/dL (3.4-4.8); Alkaline Phosphatase 62 U/L (40-110); Anion Gap 9 mmol/L (10-20); BUN (Urea Nitrogen) 17 mg/dL (8.4-25.7); Bilirubin, Total 0.6 mg/dL (0.2-1.2); Calc. Creatinine Clearance 83 mL/min (70-130); Calcium 8.8 mg/dL (7.8-10.44); Carbon Dioxide 29 mmol/L (23-31); Chloride 103 mmol/L (98-107); Globulin 2.7 g/dL (2.4-3.5); Glucose 100 mg/dL (83-110); Magnesium 2.3 mg/dL (1.6-2.6); Potassium 4.1 mmol/L (3.5-5.1); Protein, Total 6.2 g/dL (5.8-8.1); Sodium 137 mmol/L (136-145)
[2022-03-22] MEDS: Furosemide 40 MG/4 ML VIAL SLOW IVP SCH ×2 (06:22→15:48)
[2022-03-22] MEDS: Levothyroxine Sodium 75 MCG TAB PO SCH (06:22)
[2022-03-22] MEDS: Gabapentin 400 MG CAP PO SCH ×4 (06:35→20:51)
[2022-03-22] MEDS ORDERED: Lysine 500 MG TAB PO SCH ×2 (09:00)
[2022-03-22] MEDS: Loratadine 10 MG TAB PO SCH (09:34)
[2022-03-22] MEDS ORDERED: Non-Formulary Item 1 EACH (Cholecalciferol (Vitamin D3) [Vitamin D3] 1,000 UNIT Capsule) PO SCH (12:00)
[2022-03-22] MEDS: Cholecalciferol 1,000 UNITS (25 MCG) TAB PO SCH (12:23)
[2022-03-22] MEDS: Ascorbic Acid 500 mg Chewable Tablet PO SCH (12:23)
[2022-03-22] MEDS: Ferrous Sulfate 325 MG TAB PO SCH (17:56)
[2022-03-22] MEDS ORDERED: Midazolam HCl 5 mg/ml Vial ONE (19:00)
[2022-03-22] MEDS ORDERED: Midazolam HCl 5 mg/5 ml Vial ONE (19:08)
[2022-03-22] MEDS ORDERED: Phenylephrine 10 MG/ML VIAL ONE (19:09)
[2022-03-22] MEDS ORDERED: PHENYLEPHRINE-NS 100 MCG/ML 10 ML SYRINGE ONE (19:09)
[2022-03-22] MEDS: Atorvastatin Calcium 20 MG TAB PO SCH (20:50)
[2022-03-22] MEDS: Aspirin Chewable 81 MG TAB PO SCH (20:50)
[2022-03-22] MEDS: Cyanocobalamin (Vitamin B-12) 1,000 MCG TAB PO SCH (20:50)
[2022-03-22] MEDS: Donepezil HCl 10 MG TAB PO SCH (20:50)
[2022-03-22] MEDS: Niacin 500 MG TAB PO SCH (20:51)
[2022-03-22] MEDS: Doxazosin 2 MG TAB PO SCH (20:51)
[2022-03-22] MEDS: Lisinopril 10 MG TAB PO SCH (20:51)
[2022-03-22] MEDS: Stress 600 With Zinc 1 TAB PO SCH (20:51)
[2022-03-22] MEDS: Zinc Sulfate 220 MG CAP PO SCH (20:52)
[2022-03-22] MEDS ORDERED: Non-Formulary Item 1 EACH (Zinc [Zinc] 50 MG Tablet) PO SCH (21:00)
[2022-03-22] MEDS ORDERED: Non-Formulary Item 1 EACH (Vitamin B Complex [B Complex] 1 TABLET Tablet) PO SCH (21:00)
[2022-03-22] MEDS ORDERED: Non-Formulary Item 1 EACH (Doxazosin Mesylate [Cardura] 8 MG Tablet) PO SCH (21:00)
[2022-03-23 04:32] LABS: #Eosinphils 0.3 thou/uL (0.0-0.7); #Lymphocytes 1.4 thou/uL (1.20-3.40); #Monocytes 0.7 thou/uL (0.11-0.59); %Basophils 0.3 % (0.0-1.0); %Lymphocytes 18.4 % (21.0-51.0); %Monocytes 9.6 % (0.0-10.0); %Neutrophils 67.7 % (42.0-75.0); Hemoglobin 9.2 g/dL (14.0-18.0); Mean Corpuscular HGB CONC 32.2 g/dL (32.0-36.0); Mean Corpuscular Hemoglobin 28.1 pg (27.0-31.0); Mean Corpuscular Volume 87.5 fL (78.0-98.0); Mean Platelet Volume 6.4 fL (7.4-10.4); Platelet Count 176 thou/uL (130-400); RBC Distribution Width 13.9 % (11.5-14.5); Red Blood Cell (RBC) Count 3.27 mill/uL (4.70-6.10); White Blood Cell (WBC) Count 7.4 thou/uL (4.8-10.8)
[2022-03-23 04:52] LABS: Anion Gap 11 mmol/L (10-20); BUN (Urea Nitrogen) 21 mg/dL (8.4-25.7); Calc. Creatinine Clearance 65 mL/min (70-130); Calcium 9.2 mg/dL (7.8-10.44); Carbon Dioxide 31 mmol/L (23-31); Cardiac Risk 2.6 (Less than 4.5); Chloride 101 mmol/L (98-107); Cholesterol 84 mg/dl (< 200 Desired); Glucose 98 mg/dL (83-110); HDL Cholesterol 32 mg/dL (>60 Neg Risk); LDL Cholesterol, Calculated 42 mg/dL; Magnesium 2.2 mg/dL (1.6-2.6); Phosphorus 4.2 mg/dL (2.3-4.7); Potassium 3.8 mmol/L (3.5-5.1); Sodium 139 mmol/L (136-145); Triglycerides 49 mg/dL (Less than 150)
[2022-03-23] MEDS: Levothyroxine Sodium 75 MCG TAB PO SCH (05:43)
[2022-03-23] MEDS: Furosemide 40 MG/4 ML VIAL SLOW IVP SCH ×2 (05:43→15:04)
[2022-03-23] MEDS: Gabapentin 400 MG CAP PO SCH ×4 (06:49→23:58)
[2022-03-23] MEDS: Lisinopril 10 MG TAB PO SCH ×2 (08:42→22:14)
[2022-03-23] MEDS: Ferrous Sulfate 325 MG TAB PO SCH ×2 (08:42→17:25)
[2022-03-23] MEDS: Loratadine 10 MG TAB PO SCH (08:42)
[2022-03-23] MEDS: Cholecalciferol 1,000 UNITS (25 MCG) TAB PO SCH (12:08)
[2022-03-23] MEDS: Ascorbic Acid 500 mg Chewable Tablet PO SCH (12:08)
[2022-03-23] MEDS: Cyanocobalamin (Vitamin B-12) 1,000 MCG TAB PO SCH (22:11)
[2022-03-23] MEDS: Donepezil HCl 10 MG TAB PO SCH (22:11)
[2022-03-23] MEDS: Aspirin Chewable 81 MG TAB PO SCH (22:11)
[2022-03-23] MEDS: Zinc Sulfate 220 MG CAP PO SCH (22:12)
[2022-03-23] MEDS: Atorvastatin Calcium 20 MG TAB PO SCH (22:12)
[2022-03-23] MEDS: Niacin 500 MG TAB PO SCH (22:12)
[2022-03-23] MEDS: Stress 600 With Zinc 1 TAB PO SCH (22:15)
[2022-03-23] MEDS: Doxazosin 2 MG TAB PO SCH (22:24)
[2022-03-24] MEDS: Furosemide 40 MG/4 ML VIAL SLOW IVP SCH (07:50)
[2022-03-24] MEDS: Levothyroxine Sodium 75 MCG TAB PO SCH (07:55)
[2022-03-24] MEDS: Gabapentin 400 MG CAP PO SCH ×4 (09:01→21:22)
[2022-03-24] MEDS: Loratadine 10 MG TAB PO SCH (09:02)
[2022-03-24] MEDS: Ferrous Sulfate 325 MG TAB PO SCH ×2 (09:02→16:55)
[2022-03-24] MEDS ORDERED: PROPOFOL 200 MG/20 ML VIAL ONE (11:07)
[2022-03-24] MEDS ORDERED: PHENYLEPHRINE-NS 100 MCG/ML 10 ML SYRINGE ONE (11:07)
[2022-03-24] MEDS: Lisinopril 10 MG TAB PO SCH (11:10)
[2022-03-24] MEDS ORDERED: GoLYTELY 4,000 ml Bottle PO SCH (11:30)
[2022-03-24] MEDS: Sodium Chloride 0.9% 500 ML IV SCH ×2 (13:01→21:22)
[2022-03-24] MEDS: Cholecalciferol 1,000 UNITS (25 MCG) TAB PO SCH (13:01)
[2022-03-24] MEDS: Ascorbic Acid 500 mg Chewable Tablet PO SCH (13:01)
[2022-03-24] MEDS: Aspirin Chewable 81 MG TAB PO SCH (21:22)
[2022-03-24] MEDS: Donepezil HCl 10 MG TAB PO SCH (21:22)
[2022-03-24] MEDS: Niacin 500 MG TAB PO SCH (21:22)
[2022-03-24] MEDS: Cyanocobalamin (Vitamin B-12) 1,000 MCG TAB PO SCH (21:22)
[2022-03-24] MEDS: Atorvastatin Calcium 20 MG TAB PO SCH (21:22)
[2022-03-24] MEDS: Stress 600 With Zinc 1 TAB PO SCH (21:23)
[2022-03-24] MEDS: Zinc Sulfate 220 MG CAP PO SCH (21:23)
[2022-03-25 04:18] LABS: #Eosinphils 0.2 thou/uL (0.0-0.7); #Lymphocytes 1.1 thou/uL (1.20-3.40); #Monocytes 0.7 thou/uL (0.11-0.59); #Neutrophils 4.9 thou/uL (1.40-6.50); %Basophils 0.2 % (0.0-1.0); %Eosinophils 2.3 % (0.0-10.0); %Lymphocytes 15.5 % (21.0-51.0); %Monocytes 10.3 % (0.0-10.0); %Neutrophils 71.7 % (42.0-75.0); Hemoglobin 9.5 g/dL (14.0-18.0); Mean Corpuscular HGB CONC 31.5 g/dL (32.0-36.0); Mean Corpuscular Hemoglobin 28.5 pg (27.0-31.0); Mean Corpuscular Volume 90.5 fL (78.0-98.0); Mean Platelet Volume 6.6 fL (7.4-10.4); Platelet Count 141 thou/uL (130-400); RBC Distribution Width 13.9 % (11.5-14.5); Red Blood Cell (RBC) Count 3.32 mill/uL (4.70-6.10); White Blood Cell (WBC) Count 6.9 thou/uL (4.8-10.8)
[2022-03-25 04:38] LABS: Anion Gap 14 mmol/L (10-20); BUN (Urea Nitrogen) 22 mg/dL (8.4-25.7); Calc. Creatinine Clearance 70 mL/min (70-130); Calcium 8.8 mg/dL (7.8-10.44); Carbon Dioxide 28 mmol/L (23-31); Chloride 102 mmol/L (98-107); Glucose 111 mg/dL (83-110); Magnesium 2.1 mg/dL (1.6-2.6); Phosphorus 3.4 mg/dL (2.3-4.7); Potassium 3.5 mmol/L (3.5-5.1); Sodium 140 mmol/L (136-145)
[2022-03-25] MEDS: Acetaminophen 325 MG TAB PO PRN ×2 (05:45→22:40)
[2022-03-25] MEDS: Levothyroxine Sodium 75 MCG TAB PO SCH (05:46)
[2022-03-25] MEDS: Sodium Chloride 0.9% 500 ML IV SCH (05:47)
[2022-03-25] MEDS ORDERED: Potassium Chloride 20 MEQ TAB PO SCH (08:00)
[2022-03-25] MEDS: Gabapentin 400 MG CAP PO SCH ×4 (08:32→20:16)
[2022-03-25] MEDS: Loratadine 10 MG TAB PO SCH (08:33)
[2022-03-25] MEDS: Ferrous Sulfate 325 MG TAB PO SCH ×2 (08:33→17:38)
[2022-03-25] MEDS: Doxazosin 2 MG TAB PO SCH (08:33)
[2022-03-25] MEDS ORDERED: Iopamidol 370 76% 100 ML VIAL ONE (08:57)
[2022-03-25] MEDS ORDERED: Promethazine HCl 25 MG/ML VIAL IVPB PRN (13:15)
[2022-03-25] MEDS ORDERED: Ondansetron HCl/PF 4 MG/2 ML Vial IVP PRN (13:15)
[2022-03-25] MEDS ORDERED: Promethazine HCl 25 MG/ML VIAL IM PRN (13:15)
[2022-03-25] MEDS ORDERED: PROPOFOL 200 MG/20 ML VIAL ONE (13:34)
[2022-03-25] MEDS ORDERED: Lidocaine 1% PF 5 ML VIAL ONE (13:34)
[2022-03-25] MEDS: Furosemide 40 MG TAB PO SCH (15:37)
[2022-03-25] MEDS: Cholecalciferol 1,000 UNITS (25 MCG) TAB PO SCH (15:38)
[2022-03-25] MEDS: Ascorbic Acid 500 mg Chewable Tablet PO SCH (15:38)
[2022-03-25] MEDS: Zinc Sulfate 220 MG CAP PO SCH (20:15)
[2022-03-25] MEDS: Niacin 500 MG TAB PO SCH (20:15)
[2022-03-25] MEDS: Aspirin Chewable 81 MG TAB PO SCH (20:16)
[2022-03-25] MEDS: Atorvastatin Calcium 20 MG TAB PO SCH (20:16)
[2022-03-25] MEDS: Cyanocobalamin (Vitamin B-12) 1,000 MCG TAB PO SCH (20:17)
[2022-03-25] MEDS: Donepezil HCl 10 MG TAB PO SCH (20:17)
[2022-03-25] MEDS ORDERED: cefOXitin 2 GM in Sodium Chloride 0.9% 100 ML IVPB SCH (22:15)
[2022-03-25] MEDS: Stress 600 With Zinc 1 TAB PO SCH (22:40)
[2022-03-25] MEDS: Erythromycin Base 250 MG TAB PO SCH (22:51)
[2022-03-25] MEDS: Neomycin 500 mg Tablet PO SCH (22:52)
[2022-03-26] MEDS: Erythromycin Base 250 MG TAB PO SCH (05:36)
[2022-03-26] MEDS: Neomycin 500 mg Tablet PO SCH (05:36)
[2022-03-26] MEDS: Levothyroxine Sodium 75 MCG TAB PO SCH (05:37)
[2022-03-26] MEDS: Gabapentin 400 MG CAP PO SCH ×3 (09:28→23:42)
[2022-03-26] MEDS: Doxazosin 2 MG TAB PO SCH (09:29)
[2022-03-26] MEDS: Ferrous Sulfate 325 MG TAB PO SCH (09:29)
[2022-03-26] MEDS: Loratadine 10 MG TAB PO SCH (09:29)
[2022-03-26] MEDS: Furosemide 40 MG TAB PO SCH (09:29)
[2022-03-26] MEDS: Cholecalciferol 1,000 UNITS (25 MCG) TAB PO SCH (12:27)
[2022-03-26] MEDS: Ascorbic Acid 500 mg Chewable Tablet PO SCH (12:27)
[2022-03-26] MEDS ORDERED: Lidocaine 1% w/Epinephrine 1:100K 20 ML VIAL ONE (13:32)
[2022-03-26] MEDS ORDERED: Bupivacaine 0.25% HCL 30 ML VIAL ONE (13:32)
[2022-03-26] MEDS ORDERED: Fentanyl 100 MCG/2 ML VIAL ONE ×2 (13:41→19:53)
[2022-03-26] MEDS ORDERED: Midazolam HCl 2 mg/2 ml Vial ONE (13:41)
[2022-03-26] MEDS ORDERED: Phenylephrine 10 MG/ML VIAL ONE (13:52)
[2022-03-26] MEDS ORDERED: fentaNYL Citrate/PF 100 MCG/2 ML SYRINGE ONE (13:52)
[2022-03-26] MEDS ORDERED: cefOXitin 2 GM VIAL ONE ×3 (14:00→18:11)
[2022-03-26] MEDS ORDERED: Ropivacaine 0.5% HCl/PF (150 MG/30 ML VIAL) ONE (14:00)
[2022-03-26] MEDS ORDERED: Sodium Chloride 0.9% 100 ML ONE (14:01)
[2022-03-26] MEDS ORDERED: PROPOFOL 200 MG/20 ML VIAL ONE (14:15)
[2022-03-26] MEDS ORDERED: Dexamethasone 20 MG/5 ML VIAL ONE (14:15)
[2022-03-26] MEDS ORDERED: PHENYLEPHRINE-NS 100 MCG/ML 10 ML SYRINGE ONE (14:15)
[2022-03-26] MEDS ORDERED: Rocuronium Bromide 10 MG/ML (10ML VIAL) ONE (14:15)
[2022-03-26] MEDS ORDERED: Glycopyrrolate 0.2 MG/ML 5 ML SYRINGE ONE (14:15)
[2022-03-26] MEDS ORDERED: Lidocaine 1% PF 5 ML VIAL ONE (14:15)
[2022-03-26] MEDS ORDERED: Ondansetron PF 4 MG/2 ML Vial ONE (14:15)
[2022-03-26] MEDS ORDERED: Morphine 2 MG/ML VIAL SLOW IVP PRN (19:50)
[2022-03-26] MEDS ORDERED: hydrALAZINE 20 MG/ML VIAL SLOW IVP PRN (19:50)
[2022-03-26] MEDS ORDERED: Ondansetron PF 4 MG/2 ML Vial IVP PRN (19:50)
[2022-03-26] MEDS ORDERED: Famotidine/PF 20 mg/2ml Vial SLOW IVP SCH (21:00)
[2022-03-26] MEDS: D5 1/2 NS w/20 mEq KCL 1,000 ML IV SCH (22:59)
[2022-03-26] MEDS ORDERED: Famotidine 40 MG/4 ML VIAL SLOW IVP SCH (23:00)
[2022-03-26] MEDS: Stress 600 With Zinc 1 TAB PO SCH (23:06)
[2022-03-26] MEDS: Aspirin Chewable 81 MG TAB PO SCH (23:06)
[2022-03-26] MEDS: Niacin 500 MG TAB PO SCH (23:06)
[2022-03-26] MEDS: Zinc Sulfate 220 MG CAP PO SCH (23:07)
[2022-03-26] MEDS: Atorvastatin Calcium 20 MG TAB PO SCH (23:07)
[2022-03-26] MEDS: Cyanocobalamin (Vitamin B-12) 1,000 MCG TAB PO SCH (23:07)
[2022-03-26] MEDS: Donepezil HCl 10 MG TAB PO SCH (23:07)
[2022-03-26] MEDS: Famotidine 20 MG TAB PO SCH (23:46)
[2022-03-27] MEDS: Gabapentin 400 MG CAP PO SCH ×5 (01:58→21:05)
[2022-03-27] MEDS: Ferrous Sulfate 325 MG TAB PO SCH ×3 (01:58→16:40)
[2022-03-27] MEDS: cefOXitin Sodium 1 GM in Sodium Chloride 0.9% 100 ML IVPB SCH ×2 (02:17→08:52)
[2022-03-27] MEDS: Levothyroxine Sodium 75 MCG TAB PO SCH (06:43)
[2022-03-27 06:55] LABS: #Lymphocytes 0.5 thou/uL (1.20-3.40); #Monocytes 0.6 thou/uL (0.11-0.59); #Neutrophils 12.1 thou/uL (1.40-6.50); %Eosinophils 0.1 % (0.0-10.0); %Lymphocytes 3.8 % (21.0-51.0); %Monocytes 4.6 % (0.0-10.0); %Neutrophils 91.6 % (42.0-75.0); Hemoglobin 9.6 g/dL (14.0-18.0); Mean Corpuscular HGB CONC 30.6 g/dL (32.0-36.0); Mean Corpuscular Hemoglobin 27.6 pg (27.0-31.0); Mean Corpuscular Volume 90.3 fL (78.0-98.0); Platelet Count 143 thou/uL (130-400); RBC Distribution Width 14.1 % (11.5-14.5); Red Blood Cell (RBC) Count 3.48 mill/uL (4.70-6.10); White Blood Cell (WBC) Count 13.2 thou/uL (4.8-10.8)
[2022-03-27 07:23] LABS: Anion Gap 11 mmol/L (10-20); BUN (Urea Nitrogen) 11 mg/dL (8.4-25.7); Calc. Creatinine Clearance 76 mL/min (70-130); Calcium 8.3 mg/dL (7.8-10.44); Carbon Dioxide 26 mmol/L (23-31); Chloride 103 mmol/L (98-107); Glucose 172 mg/dL (83-110); Potassium 4.3 mmol/L (3.5-5.1); Sodium 136 mmol/L (136-145)
[2022-03-27] MEDS: D5 1/2 NS w/20 mEq KCL 1,000 ML IV SCH ×3 (08:11→22:50)
[2022-03-27] MEDS: Famotidine 40 MG/4 ML VIAL SLOW IVP SCH ×2 (08:52→22:05)
[2022-03-27] MEDS: Enoxaparin Sodium 40 MG/0.4 ML SYRINGE SC SCH (08:52)
[2022-03-27] MEDS: Furosemide 40 MG TAB PO SCH (08:52)
[2022-03-27] MEDS: Loratadine 10 MG TAB PO SCH (08:52)
[2022-03-27] MEDS: Doxazosin 2 MG TAB PO SCH (09:42)
[2022-03-27] MEDS: Famotidine 20 MG TAB PO SCH ×2 (09:42→21:06)
[2022-03-27] MEDS: Cholecalciferol 1,000 UNITS (25 MCG) TAB PO SCH (11:44)
[2022-03-27] MEDS: Ascorbic Acid 500 mg Chewable Tablet PO SCH (11:44)
[2022-03-27] MEDS ORDERED: Lisinopril 10 MG TAB PO SCH (14:45)
[2022-03-27] MEDS: Stress 600 With Zinc 1 TAB PO SCH (21:04)
[2022-03-27] MEDS: Donepezil HCl 10 MG TAB PO SCH (21:06)
[2022-03-27] MEDS: Zinc Sulfate 220 MG CAP PO SCH (21:06)
[2022-03-27] MEDS: Niacin 500 MG TAB PO SCH (21:07)
[2022-03-27] MEDS: Atorvastatin Calcium 20 MG TAB PO SCH (21:07)
[2022-03-27] MEDS: Cyanocobalamin (Vitamin B-12) 1,000 MCG TAB PO SCH (21:07)
[2022-03-27] MEDS: Aspirin Chewable 81 MG TAB PO SCH (21:07)
[2022-03-28] MEDS: Levothyroxine Sodium 75 MCG TAB PO SCH (06:31)
[2022-03-28] MEDS: Furosemide 40 MG TAB PO SCH (06:31)
[2022-03-28] MEDS: D5 1/2 NS w/20 mEq KCL 1,000 ML IV SCH ×3 (07:40→19:51)
[2022-03-28 09:38] LABS: #Eosinphils 0.6 thou/uL (0.0-0.7); #Monocytes 0.7 thou/uL (0.11-0.59); #Neutrophils 8.2 thou/uL (1.40-6.50); %Basophils 0.4 % (0.0-1.0); %Eosinophils 5.9 % (0.0-10.0); %Lymphocytes 9.8 % (21.0-51.0); %Monocytes 6.5 % (0.0-10.0); %Neutrophils 77.3 % (42.0-75.0); Hemoglobin 9.2 g/dL (14.0-18.0); Mean Corpuscular HGB CONC 31.5 g/dL (32.0-36.0); Mean Corpuscular Hemoglobin 28.5 pg (27.0-31.0); Mean Corpuscular Volume 90.5 fL (78.0-98.0); Mean Platelet Volume 6.7 fL (7.4-10.4); Platelet Count 157 thou/uL (130-400); RBC Distribution Width 14.7 % (11.5-14.5); Red Blood Cell (RBC) Count 3.22 mill/uL (4.70-6.10); White Blood Cell (WBC) Count 10.5 thou/uL (4.8-10.8)
[2022-03-28] MEDS: Gabapentin 400 MG CAP PO SCH ×4 (10:01→20:31)
[2022-03-28] MEDS: Famotidine 40 MG/4 ML VIAL SLOW IVP SCH ×2 (10:03→20:32)
[2022-03-28] MEDS: Enoxaparin Sodium 40 MG/0.4 ML SYRINGE SC SCH (10:03)
[2022-03-28] MEDS: Ferrous Sulfate 325 MG TAB PO SCH ×2 (10:03→17:48)
[2022-03-28] MEDS: Lisinopril 10 MG TAB PO SCH (10:03)
[2022-03-28] MEDS: Doxazosin 2 MG TAB PO SCH (10:03)
[2022-03-28] MEDS: Famotidine 20 MG TAB PO SCH ×2 (10:03→20:31)
[2022-03-28] MEDS: Loratadine 10 MG TAB PO SCH (10:03)
[2022-03-28 10:18] LABS: Anion Gap 14 mmol/L (10-20); BUN (Urea Nitrogen) 8 mg/dL (8.4-25.7); Calc. Creatinine Clearance 79 mL/min (70-130); Calcium 8.8 mg/dL (7.8-10.44); Carbon Dioxide 24 mmol/L (23-31); Chloride 103 mmol/L (98-107); Glucose 121 mg/dL (83-110); Potassium 3.9 mmol/L (3.5-5.1); Sodium 137 mmol/L (136-145)
[2022-03-28] MEDS: Ascorbic Acid 500 mg Chewable Tablet PO SCH (12:06)
[2022-03-28] MEDS: Cholecalciferol 1,000 UNITS (25 MCG) TAB PO SCH (12:06)
[2022-03-28] MEDS: Stress 600 With Zinc 1 TAB PO SCH (20:30)
[2022-03-28] MEDS: Aspirin Chewable 81 MG TAB PO SCH (20:30)
[2022-03-28] MEDS: Donepezil HCl 10 MG TAB PO SCH (20:31)
[2022-03-28] MEDS: Zinc Sulfate 220 MG CAP PO SCH (20:31)
[2022-03-28] MEDS: Cyanocobalamin (Vitamin B-12) 1,000 MCG TAB PO SCH (20:31)
[2022-03-28] MEDS: Niacin 500 MG TAB PO SCH (20:31)
[2022-03-28] MEDS: Atorvastatin Calcium 20 MG TAB PO SCH (20:31)
[2022-03-28] MEDS: Acetaminophen 325 MG TAB PO PRN (20:34)
[2022-03-29] MEDS: D5 1/2 NS w/20 mEq KCL 1,000 ML IV SCH ×3 (05:50→22:09)
[2022-03-29] MEDS: Furosemide 40 MG TAB PO SCH (06:33)
[2022-03-29] MEDS: Gabapentin 400 MG CAP PO SCH ×4 (06:34→21:01)
[2022-03-29] MEDS: Levothyroxine Sodium 75 MCG TAB PO SCH (06:34)
[2022-03-29 06:44] LABS: Anion Gap 12 mmol/L (10-20); BUN (Urea Nitrogen) 7 mg/dL (8.4-25.7); Calc. Creatinine Clearance 93 mL/min (70-130); Calcium 8.7 mg/dL (7.8-10.44); Carbon Dioxide 28 mmol/L (23-31); Chloride 102 mmol/L (98-107); Glucose 100 mg/dL (83-110); Potassium 3.4 mmol/L (3.5-5.1); Sodium 139 mmol/L (136-145)
[2022-03-29] MEDS ORDERED: Potassium Chloride 20 MEQ TAB PO SCH (08:15)
[2022-03-29] MEDS: Enoxaparin Sodium 40 MG/0.4 ML SYRINGE SC SCH (10:00)
[2022-03-29] MEDS: Acetaminophen 325 MG TAB PO PRN (10:01)
[2022-03-29] MEDS: Ferrous Sulfate 325 MG TAB PO SCH ×2 (10:01→18:07)
[2022-03-29] MEDS: Loratadine 10 MG TAB PO SCH (10:02)
[2022-03-29] MEDS: Famotidine 20 MG TAB PO SCH ×2 (10:02→20:44)
[2022-03-29] MEDS: Lisinopril 10 MG TAB PO SCH (10:02)
[2022-03-29] MEDS: Doxazosin 2 MG TAB PO SCH (10:03)
[2022-03-29] MEDS: Famotidine 40 MG/4 ML VIAL SLOW IVP SCH ×2 (10:03→20:44)
[2022-03-29] MEDS ORDERED: Lisinopril 10 MG TAB PO SCH (10:45)
[2022-03-29] MEDS: Cholecalciferol 1,000 UNITS (25 MCG) TAB PO SCH (13:41)
[2022-03-29] MEDS: Ascorbic Acid 500 mg Chewable Tablet PO SCH (13:42)
[2022-03-29] MEDS: Zinc Sulfate 220 MG CAP PO SCH (20:43)
[2022-03-29] MEDS: Stress 600 With Zinc 1 TAB PO SCH (20:43)
[2022-03-29] MEDS: Atorvastatin Calcium 20 MG TAB PO SCH (20:43)
[2022-03-29] MEDS: Donepezil HCl 10 MG TAB PO SCH (20:43)
[2022-03-29] MEDS: Aspirin Chewable 81 MG TAB PO SCH (20:43)
[2022-03-29] MEDS: Niacin 500 MG TAB PO SCH (20:44)
[2022-03-29] MEDS: Cyanocobalamin (Vitamin B-12) 1,000 MCG TAB PO SCH (20:44)
[2022-03-29] MEDS: Hydrocortisone 1% Cream 30 GM TUBE TOP SCH (20:54)
[2022-03-30] MEDS: D5 1/2 NS w/20 mEq KCL 1,000 ML IV SCH ×2 (06:05→15:40)
[2022-03-30] MEDS: Levothyroxine Sodium 75 MCG TAB PO SCH (06:05)
[2022-03-30] MEDS: Furosemide 40 MG TAB PO SCH (06:05)
[2022-03-30] MEDS: Gabapentin 400 MG CAP PO SCH ×4 (06:06→21:09)
[2022-03-30 07:37] LABS: #Eosinphils 0.7 thou/uL (0.0-0.7); #Monocytes 0.5 thou/uL (0.11-0.59); #Neutrophils 4.6 thou/uL (1.40-6.50); %Basophils 0.3 % (0.0-1.0); %Eosinophils 10.2 % (0.0-10.0); %Monocytes 7.9 % (0.0-10.0); %Neutrophils 67.6 % (42.0-75.0); Hemoglobin 9.7 g/dL (14.0-18.0); Mean Corpuscular HGB CONC 32.2 g/dL (32.0-36.0); Mean Corpuscular Hemoglobin 29.3 pg (27.0-31.0); Mean Corpuscular Volume 90.8 fL (78.0-98.0); Mean Platelet Volume 7.3 fL (7.4-10.4); Platelet Count 164 thou/uL (130-400); Red Blood Cell (RBC) Count 3.31 mill/uL (4.70-6.10); White Blood Cell (WBC) Count 6.9 thou/uL (4.8-10.8)
[2022-03-30 07:55] LABS: Anion Gap 12 mmol/L (10-20); BUN (Urea Nitrogen) 5 mg/dL (8.4-25.7); Calc. Creatinine Clearance 94 mL/min (70-130); Calcium 8.9 mg/dL (7.8-10.44); Carbon Dioxide 29 mmol/L (23-31); Chloride 101 mmol/L (98-107); Glucose 101 mg/dL (83-110); Potassium 3.7 mmol/L (3.5-5.1); Sodium 138 mmol/L (136-145)
[2022-03-30] MEDS: Famotidine 20 MG TAB PO SCH ×2 (08:51→21:09)
[2022-03-30] MEDS: Ferrous Sulfate 325 MG TAB PO SCH ×2 (08:51→17:24)
[2022-03-30] MEDS: Doxazosin 2 MG TAB PO SCH (08:52)
[2022-03-30] MEDS: Loratadine 10 MG TAB PO SCH (08:52)
[2022-03-30] MEDS: Enoxaparin Sodium 40 MG/0.4 ML SYRINGE SC SCH (08:52)
[2022-03-30] MEDS: Hydrocortisone 1% Cream 30 GM TUBE TOP SCH ×2 (09:00→21:11)
[2022-03-30] MEDS ORDERED: Lisinopril 20 MG TAB PO SCH (09:00)
[2022-03-30] MEDS ORDERED: Magnesium 2 GM/50 ML(in water) 2 GM in Premix Bag 1 BAG IVPB SCH (09:00)
[2022-03-30] MEDS: Famotidine 40 MG/4 ML VIAL SLOW IVP SCH ×2 (09:03→21:11)
[2022-03-30] MEDS: Cholecalciferol 1,000 UNITS (25 MCG) TAB PO SCH (12:30)
[2022-03-30] MEDS: Ascorbic Acid 500 mg Chewable Tablet PO SCH (12:30)
[2022-03-30 14:01] VITALS: BMI 36.3
[2022-03-30] MEDS: Zinc Sulfate 220 MG CAP PO SCH (21:08)
[2022-03-30] MEDS: Donepezil HCl 10 MG TAB PO SCH (21:08)
[2022-03-30] MEDS: Niacin 500 MG TAB PO SCH (21:08)
[2022-03-30] MEDS: Stress 600 With Zinc 1 TAB PO SCH (21:08)
[2022-03-30] MEDS: Atorvastatin Calcium 20 MG TAB PO SCH (21:08)
[2022-03-30] MEDS: Aspirin Chewable 81 MG TAB PO SCH (21:09)
[2022-03-30] MEDS: Lisinopril 20 MG TAB PO SCH (21:10)
[2022-03-30] MEDS: Cyanocobalamin (Vitamin B-12) 1,000 MCG TAB PO SCH (21:10)
[2022-03-31] MEDS: D5 1/2 NS w/20 mEq KCL 1,000 ML IV SCH ×2 (01:04→12:22)
[2022-03-31] MEDS: Levothyroxine Sodium 75 MCG TAB PO SCH (05:01)
[2022-03-31] MEDS: Lisinopril 20 MG TAB PO SCH (08:13)
[2022-03-31] MEDS: Gabapentin 400 MG CAP PO SCH ×3 (08:13→17:29)
[2022-03-31] MEDS: Famotidine 20 MG TAB PO SCH (08:14)
[2022-03-31] MEDS: Furosemide 40 MG TAB PO SCH (08:14)
[2022-03-31] MEDS: Ferrous Sulfate 325 MG TAB PO SCH ×2 (08:14→17:31)
[2022-03-31] MEDS: Loratadine 10 MG TAB PO SCH (08:14)
[2022-03-31] MEDS: Doxazosin 2 MG TAB PO SCH (08:14)
[2022-03-31] MEDS: Enoxaparin Sodium 40 MG/0.4 ML SYRINGE SC SCH (08:14)
[2022-03-31] MEDS: Famotidine 40 MG/4 ML VIAL SLOW IVP SCH (09:00)
[2022-03-31] MEDS: Hydrocortisone 1% Cream 30 GM TUBE TOP SCH (09:00)
[2022-03-31 12:09] VITALS: TEMP 98.6
[2022-03-31] MEDS: Cholecalciferol 1,000 UNITS (25 MCG) TAB PO SCH (12:47)
[2022-03-31] MEDS: Ascorbic Acid 500 mg Chewable Tablet PO SCH (12:47)
[2022-03-31 16:14] VITALS: BP 122/66
== END 2022-03-31 17:35 | DRG 329 ==
LOC: ERS 13:06 → 2NO 14:50 → SURG A 03-26 13:56 → SURG B 03-26 21:09
PROVIDERS: ADMIT Internal Medicine; ATTEND Internal Medicine
PROC: 0DB78ZX Excision of Stomach, Pylorus, Via Natural or Artificial Opening Endoscopic, Diagnostic (ICD-10-PCS; 2022-03-24)
PROC: 0DBK8ZZ Excision of Ascending Colon, Via Natural or Artificial Opening Endoscopic (ICD-10-PCS; 2022-03-25)
PROC: 0DBL8ZZ Excision of Transverse Colon, Via Natural or Artificial Opening Endoscopic (ICD-10-PCS; 2022-03-25)
PROC: 0DBK8ZX Excision of Ascending Colon, Via Natural or Artificial Opening Endoscopic, Diagnostic (ICD-10-PCS; 2022-03-25)
PROC: 0DTF0ZZ Resection of Right Large Intestine, Open Approach (ICD-10-PCS; principal; 2022-03-26)
PROC: 3E0T3BZ Introduction of Anesthetic Agent into Peripheral Nerves and Plexi, Percutaneous Approach (ICD-10-PCS; 2022-03-26)
DX: C18.2 Malignant neoplasm of ascending colon (principal); I50.31 Acute diastolic (congestive) heart failure; K92.2 Gastrointestinal hemorrhage, unspecified; Z20.822 Contact with and (suspected) exposure to COVID-19; K63.5 Polyp of colon; F03.90 Unspecified dementia, unspecified severity, without behavioral disturbance, psychotic disturbance, mood disturbance, and anxiety; I25.10 Atherosclerotic heart disease of native coronary artery without angina pectoris; E03.9 Hypothyroidism, unspecified; G40.909 Epilepsy, unspecified, not intractable, without status epilepticus; N40.0 Benign prostatic hyperplasia without lower urinary tract symptoms; G62.9 Polyneuropathy, unspecified; I08.0 Rheumatic disorders of both mitral and aortic valves; I95.1 Orthostatic hypotension; I11.0 Hypertensive heart disease with heart failure; I44.0 Atrioventricular block, first degree; I49.5 Sick sinus syndrome; D50.0 Iron deficiency anemia secondary to blood loss (chronic); E78.00 Pure hypercholesterolemia, unspecified; K29.60 Other gastritis without bleeding; K57.30 Diverticulosis of large intestine without perforation or abscess without bleeding; R21 Rash and other nonspecific skin eruption; Z88.2 Allergy status to sulfonamides; Z88.8 Allergy status to other drugs, medicaments and biological substances; Z79.899 Other long term (current) drug therapy; Z79.82 Long term (current) use of aspirin; Z79.890 Hormone replacement therapy; Z98.42 Cataract extraction status, left eye; Z98.41 Cataract extraction status, right eye; Z98.890 Other specified postprocedural states
CPT/HCPCS: 36415; 36416; 71045; 74019; 74177; 80048; 80053; 80061; 81479; 82274; 82378; 82550; 82607; 82728; 82746; 83540; 83550; 83690; 83735; 83880; 84100; 84443; 84484; 85025; 85046; 85610; 85730; 88305; 88309; 88361; 88377; 93005; 93306; 96360; 99215; A4649; C1776; G0463; J0694; J1100; J1650; J1940; J2250; J2370; J2405; J2704; J2795; J3010; J3475; J3480; J3490; J7050; Q9967; S0020; U0003; U0005

== ENCOUNTER 2022-05-21 13:17 | Outpatient (CLI) | payer MEDICARE, OTHER ==
[~2022-05-21 13:17] MED LIST changes: -ISOVUE-370 76%-LOCM 1 ML ONE; +Iopamidol-370 76% 500 ML 1 ML ONE
== END 2022-05-21 13:18 | disposition home or self-care (01) ==
LOC: BICCT 13:17
PROVIDERS: ATTEND Internal Medicine Hematology & Oncology
DX: C18.0 Malignant neoplasm of cecum (principal); D50.0 Iron deficiency anemia secondary to blood loss (chronic); R91.8 Other nonspecific abnormal finding of lung field; I25.10 Atherosclerotic heart disease of native coronary artery without angina pectoris; N62 Hypertrophy of breast; I70.0 Atherosclerosis of aorta; J98.4 Other disorders of lung; I65.23 Occlusion and stenosis of bilateral carotid arteries; D18.09 Hemangioma of other sites; M19.90 Unspecified osteoarthritis, unspecified site; N28.1 Cyst of kidney, acquired; K44.9 Diaphragmatic hernia without obstruction or gangrene
CPT/HCPCS: 71260; Q9967

== ENCOUNTER 2022-11-23 08:47 | Outpatient (CLI) | payer MEDICARE, OTHER ==
[2022-11-23] MEDS ORDERED: Iopamidol-370 76% 500 ML 1 ML ONE (10:30)
== END 2022-11-23 08:48 | disposition home or self-care (01) ==
LOC: BICCT 08:47
PROVIDERS: ATTEND Internal Medicine Hematology & Oncology
DX: C18.9 Malignant neoplasm of colon, unspecified (principal); R91.8 Other nonspecific abnormal finding of lung field; D50.0 Iron deficiency anemia secondary to blood loss (chronic); N21.0 Calculus in bladder; N32.89 Other specified disorders of bladder; J90 Pleural effusion, not elsewhere classified; I51.7 Cardiomegaly
CPT/HCPCS: 71260; 74177

== ENCOUNTER 2023-02-14 08:57 | Outpatient (CLI) | payer MEDICARE, OTHER | END 2023-02-14 08:58 | disposition home or self-care (01) | LOC: CT 08:57 | PROVIDERS: ATTEND Internal Medicine Hematology & Oncology | DX: C18.0 Malignant neoplasm of cecum (principal); R91.1 Solitary pulmonary nodule | CPT/HCPCS: 71260; 74177 ==

== ENCOUNTER 2023-04-24 08:14 | Outpatient (CLI) | payer MEDICARE, OTHER ==
[2023-04-24] MEDS ORDERED: Iopamidol 370 76% 100 ML VIAL ONE (12:47)
== END 2023-04-24 08:15 | disposition home or self-care (01) ==
LOC: BICCT 08:14
PROVIDERS: ATTEND Internal Medicine Hematology & Oncology
DX: C18.9 Malignant neoplasm of colon, unspecified (principal); R91.1 Solitary pulmonary nodule; N28.1 Cyst of kidney, acquired; K57.30 Diverticulosis of large intestine without perforation or abscess without bleeding; N21.0 Calculus in bladder; K80.20 Calculus of gallbladder without cholecystitis without obstruction; M47.9 Spondylosis, unspecified; N32.89 Other specified disorders of bladder; K55.059 Acute (reversible) ischemia of intestine, part and extent unspecified; I81 Portal vein thrombosis
CPT/HCPCS: 71260; 74177; 82565

== ENCOUNTER 2023-05-25 09:58 | Emergency (ER) | payer MEDICARE, OTHER ==
[2023-05-25 11:11] LABS: Specific Gravity, Urine 1.015 (1.005-1.030)
[2023-05-25 11:12] LABS: Bilirubin Unable to Interpret (Negative); Blood, Urine Unable to Interpret (Negative); Clarity Hazy (Clear); Glucose, Urine (Dipstick) Unable to Interpret mg/dL (Negative); Ketone, Urine Unable to Interpret mg/dL (Negative); Leukocyte Unable to Interpret (Negative); Nitrite Unable to Interpret (Negative); Protein, Urine (Dipstick) Unable to Interpret mg/dL (Neg-Trace); Urobilinogen UNABLE TO INTERPRET mg/dL (Less than 2)
[2023-05-25 11:14] LABS: CAUTI Indications for Culture Dysuria,urgency,freq; RBC/HPF Greater than 50 HPF (0-3); Squamous Epithelial None Seen HPF (0-3); WBC/HPF 0-3 HPF (0-3)
[2023-05-25 11:15] LABS: Urine Culture Reflex No No
== END 2023-05-25 12:15 | disposition home or self-care (01) ==
LOC: ERS 09:58
DX: R31.0 Gross hematuria (principal); I10 Essential (primary) hypertension; E03.9 Hypothyroidism, unspecified; Z79.82 Long term (current) use of aspirin; Z79.899 Other long term (current) drug therapy
CPT/HCPCS: 81001; 99283

== ENCOUNTER 2023-06-11 09:55 | Outpatient (CLI) | payer MEDICARE, OTHER | END 2023-06-11 09:56 | disposition home or self-care (01) | LOC: SCSRAD 09:55 | PROVIDERS: ATTEND Internal Medicine | DX: M47.26 Other spondylosis with radiculopathy, lumbar region (principal); M25.551 Pain in right hip; M16.11 Unilateral primary osteoarthritis, right hip | CPT/HCPCS: 72100 ==

== ENCOUNTER 2023-06-28 08:12 | Day surgery (SDC) | payer MEDICARE, OTHER ==
[2023-06-26 17:26] VITALS: BMI 32.7
[2023-06-28] MEDS ORDERED: PROPOFOL 200 MG/20 ML VIAL ONE (12:56)
[2023-06-28] MEDS ORDERED: Lidocaine 1% PF 5 ML VIAL ONE (12:56)
== END 2023-06-28 14:14 | disposition home or self-care (01) ==
LOC: SDC 08:12
PROVIDERS: ATTEND Internal Medicine Gastroenterology
PROC: 0DJD8ZZ Inspection of Lower Intestinal Tract, Via Natural or Artificial Opening Endoscopic (ICD-10-PCS; principal; 2023-06-28)
DX: C18.2 Malignant neoplasm of ascending colon (principal); K57.30 Diverticulosis of large intestine without perforation or abscess without bleeding; K64.8 Other hemorrhoids; I48.91 Unspecified atrial fibrillation; I10 Essential (primary) hypertension; E78.5 Hyperlipidemia, unspecified; Z90.49 Acquired absence of other specified parts of digestive tract; Z79.899 Other long term (current) drug therapy; Z88.2 Allergy status to sulfonamides; Z88.8 Allergy status to other drugs, medicaments and biological substances; Z87.891 Personal history of nicotine dependence
CPT/HCPCS: J2704

== ENCOUNTER 2023-07-29 10:51 | Outpatient (CLI) | payer MEDICARE, OTHER ==
[2023-07-29 12:51] LABS: Bilirubin Neg (Negative); Blood, Urine 250 (Negative); Glucose, Urine (Dipstick) Normal (Negative); Ketone, Urine 5 mg/dL (Negative); Nitrite Negative (Negative); Protein, Urine (Dipstick) 100 mg/dl (Neg-Trace); Urobilinogen Normal mg/dL (Less than 2)
[2023-07-29 12:54] LABS: Clarity Very Cloudy (Clear); Leukocyte Unable to Interpret (Negative)
[2023-07-29 12:59] LABS: Bacteria/HPF 1+ HPF (None Seen); RBC/HPF Greater than 50 HPF (0-3); Squamous Epithelial 0-3 HPF (0-3)
[2023-07-29 13:08] LABS: Hemoglobin 15.8 g/dL (13.5-17.5); Mean Corpuscular HGB CONC 34.3 g/dL (32.0-36.0); Mean Corpuscular Volume 93.3 fl (81.2-95.1); Mean Platelet Volume 10.3 fl (7.4-10.4); Platelet Count 148 10x3/uL (150-450); RBC Distribution Width 14.3 % (11.5-14.5); Red Blood Cell (RBC) Count 4.93 10x6/uL (4.32-5.72)
[2023-07-29 13:19] LABS: Anion Gap 18 mmol/L (10-20); BUN (Urea Nitrogen) 20 mg/dL (8.4-25.7); Calc. Creatinine Clearance 0 mL/min (70-130); Calcium 9.5 mg/dL (7.8-10.44); Carbon Dioxide 22 mmol/L (23-31); Chloride 102 mmol/L (98-107); Estimated GFR 74; Glucose 121 mg/dL (83-110); Potassium 4.5 mmol/L (3.5-5.1); Prothrombin Time 10.9 sec (9.5-12.1); Sodium 137 mmol/L (136-145)
== END 2023-07-29 10:52 | disposition home or self-care (01) ==
LOC: LABBT 10:51
PROVIDERS: ATTEND Urology
DX: Z01.818 Encounter for other preprocedural examination (principal); N21.0 Calculus in bladder; I44.0 Atrioventricular block, first degree; G47.33 Obstructive sleep apnea (adult) (pediatric); N40.1 Benign prostatic hyperplasia with lower urinary tract symptoms; R31.0 Gross hematuria; N39.41 Urge incontinence; I25.10 Atherosclerotic heart disease of native coronary artery without angina pectoris; R39.12 Poor urinary stream; D69.6 Thrombocytopenia, unspecified; F03.90 Unspecified dementia, unspecified severity, without behavioral disturbance, psychotic disturbance, mood disturbance, and anxiety; R41.3 Other amnesia; R35.1 Nocturia; G63 Polyneuropathy in diseases classified elsewhere
CPT/HCPCS: 80048; 81001; 85027; 85610; 85730; 87086; 93005; 93010

== ENCOUNTER 2023-08-08 08:13 | Inpatient (IN) | payer MEDICARE, OTHER ==
[2023-07-29 11:15] VITALS: BMI 34.0
[2023-08-08] MEDS ORDERED: fentaNYL PF 100 MCG/2 ML SYRINGE ONE (11:13)
[2023-08-08] MEDS ORDERED: LevoFLOXacin 500 mg/D5W 100 ML BAG ONE (11:28)
[2023-08-08] MEDS ORDERED: ePHEDrine Sulfate 50 MG/10 ML VIAL ONE (11:43)
[2023-08-08] MEDS ORDERED: NEOSTIGMINE 3 MG/3 ML SYR 3 MG/3 ML SYRINGE ONE (11:43)
[2023-08-08] MEDS ORDERED: Ondansetron PF 4 MG/2 ML Vial ONE (11:43)
[2023-08-08] MEDS ORDERED: PROPOFOL 200 MG/20 ML VIAL ONE (11:43)
[2023-08-08] MEDS ORDERED: Lidocaine 1% PF 5 ML VIAL ONE (11:43)
[2023-08-08] MEDS ORDERED: Rocuronium Bromide 10 MG/ML (10ML VIAL) ONE (11:43)
[2023-08-08] MEDS ORDERED: Glycopyrrolate 0.2 MG/ML 5 ML SYRINGE ONE (11:43)
[2023-08-08] MEDS ORDERED: Promethazine HCl 25 MG/ML VIAL IM PRN (12:50)
[2023-08-08] MEDS ORDERED: Meperidine HCl/PF 25 MG/ML VIAL SLOW IVP PRN (12:50)
[2023-08-08] MEDS ORDERED: Ondansetron HCl/PF 4 MG/2 ML Vial IVP PRN (12:50)
[2023-08-08] MEDS ORDERED: PACU-Morphine 4MG/ML VIAL SLOW IVP PRN (12:50)
[2023-08-08] MEDS ORDERED: diphenhydrAMINE 25 MG CAP PO PRN (12:52)
[2023-08-08] MEDS ORDERED: Morphine 2 MG/ML VIAL SLOW IVP PRN (12:52)
[2023-08-08] MEDS ORDERED: Bisacodyl 10 MG SUPP PR PRN (12:52)
[2023-08-08] MEDS ORDERED: Ipratropium Bromide 0.03% Nasal Inhaler 30 ml Bottle EA NARE PRN (12:54)
[2023-08-08] MEDS ORDERED: hydrALAZINE 20 MG/ML VIAL ONE (13:11)
[2023-08-08] MEDS: Gabapentin 300 MG CAP PO SCH ×2 (15:36→19:53)
[2023-08-08] MEDS: LevoFLOXacin 500 mg/D5W 500 MG in Premix 1 BAG IVPB SCH (15:36)
[2023-08-08] MEDS: Donepezil HCl 10 MG TAB PO SCH (19:53)
[2023-08-08] MEDS: Docusate 100 MG CAP PO SCH (19:53)
[2023-08-08] MEDS: Trospium 20 MG TAB PO SCH (19:53)
[2023-08-08] MEDS: Atorvastatin Calcium 40 MG TAB PO SCH (19:53)
[2023-08-08] MEDS: CO Q-10 CAPSULE 100 MG PO SCH (19:53)
[2023-08-09] MEDS: Acetaminophen 500 MG TAB PO PRN (01:12)
[2023-08-09] MEDS: Ondansetron PF 4 MG/2 ML Vial IVP PRN ×3 (01:16→18:17)
[2023-08-09 05:29] LABS: #Eosinphils 0.1 thou/uL (0.0-0.7); #Monocytes 0.6 thou/uL (0.11-0.59); #Neutrophils 10.1 thou/uL (1.40-6.50); %Basophils 0.3 % (0.0-1.0); %Eosinophils 0.4 % (0.0-10.0); %Lymphocytes 6.4 % (21.0-51.0); %Monocytes 5.4 % (0.0-10.0); %Neutrophils 87.2 % (42.0-75.0); Hematocrit 41.7 % (42.0-52.0); Mean Corpuscular HGB CONC 33.6 g/dL (32.0-36.0); Mean Corpuscular Hemoglobin 32.2 pg (27.0-31.0); Mean Corpuscular Volume 95.9 fl (78.0-98.0); Mean Platelet Volume 9.3 fL (7.4-10.4); Platelet Count 122 10x3/uL (130-400); RBC Distribution Width 14.5 % (11.5-14.5); Red Blood Cell (RBC) Count 4.35 mill/uL (4.70-6.10); White Blood Cell (WBC) Count 11.6 10x3/uL (4.8-10.8)
[2023-08-09 05:56] LABS: Anion Gap 11 mmol/L (10-20); BUN (Urea Nitrogen) 14 mg/dL (8.4-25.7); Calc. Creatinine Clearance 78 mL/min (70-130); Calcium 9.3 mg/dL (7.8-10.44); Carbon Dioxide 27 mmol/L (23-31); Chloride 103 mmol/L (98-107); Estimated GFR 76; Glucose 114 mg/dL (83-110); Potassium 4.3 mmol/L (3.5-5.1); Sodium 137 mmol/L (136-145)
[2023-08-09] MEDS: Levothyroxine Sodium 75 MCG TAB PO SCH (06:03)
[2023-08-09] MEDS: Gabapentin 300 MG CAP PO SCH ×4 (06:03→20:56)
[2023-08-09] MEDS: Furosemide 40 MG TAB PO SCH (06:03)
[2023-08-09] MEDS: Lysine 500 MG TAB PO SCH (09:37)
[2023-08-09] MEDS: Trospium 20 MG TAB PO SCH ×2 (09:37→20:55)
[2023-08-09] MEDS: Ferrous Sulfate 325 MG TAB PO SCH (09:37)
[2023-08-09] MEDS: Docusate 100 MG CAP PO SCH ×2 (09:37→20:55)
[2023-08-09] MEDS: LevoFLOXacin 500 MG TAB PO SCH (18:17)
[2023-08-09] MEDS: LevoFLOXacin 500 mg/D5W 500 MG in Premix 1 BAG IVPB SCH (18:45)
[2023-08-09] MEDS: Atorvastatin Calcium 40 MG TAB PO SCH (20:55)
[2023-08-09] MEDS: Donepezil HCl 10 MG TAB PO SCH (20:55)
[2023-08-09] MEDS: CO Q-10 CAPSULE 100 MG PO SCH (20:55)
[2023-08-09] MEDS: hydrALAZINE 20 MG/ML VIAL SLOW IVP PRN (21:43)
[2023-08-10] MEDS: Gabapentin 300 MG CAP PO SCH ×5 (04:16→20:49)
[2023-08-10] MEDS: Acetaminophen 500 MG TAB PO PRN ×2 (04:21→14:59)
[2023-08-10] MEDS: Levothyroxine Sodium 75 MCG TAB PO SCH (06:42)
[2023-08-10] MEDS: Trospium 20 MG TAB PO SCH ×2 (09:23→20:49)
[2023-08-10] MEDS: Lysine 500 MG TAB PO SCH (09:23)
[2023-08-10] MEDS: Docusate 100 MG CAP PO SCH ×2 (09:24→20:49)
[2023-08-10] MEDS: Ferrous Sulfate 325 MG TAB PO SCH (09:24)
[2023-08-10] MEDS: Furosemide 40 MG TAB PO SCH (09:24)
[2023-08-10] MEDS: hydrALAZINE 20 MG/ML VIAL SLOW IVP PRN (11:37)
[2023-08-10] MEDS: Ondansetron PF 4 MG/2 ML Vial IVP PRN ×2 (11:41→18:12)
[2023-08-10] MEDS: LevoFLOXacin 500 MG TAB PO SCH (17:56)
[2023-08-10 19:58] LABS: #Eosinphils 0.1 thou/uL (0.0-0.7); #Monocytes 0.9 thou/uL (0.11-0.59); #Neutrophils 10.5 thou/uL (1.40-6.50); %Basophils 0.3 % (0.0-1.0); %Eosinophils 0.4 % (0.0-10.0); %Lymphocytes 5.4 % (21.0-51.0); %Neutrophils 86.5 % (42.0-75.0); Hematocrit 43.1 % (42.0-52.0); Hemoglobin 14.6 g/dL (14.0-18.0); Mean Corpuscular HGB CONC 33.9 g/dL (32.0-36.0); Mean Corpuscular Hemoglobin 32.2 pg (27.0-31.0); Mean Corpuscular Volume 95.1 fl (78.0-98.0); Mean Platelet Volume 9.5 fL (7.4-10.4); Platelet Count 127 10x3/uL (130-400); RBC Distribution Width 14.7 % (11.5-14.5); Red Blood Cell (RBC) Count 4.53 mill/uL (4.70-6.10); White Blood Cell (WBC) Count 12.1 10x3/uL (4.8-10.8)
[2023-08-10] MEDS: Lisinopril 5 MG TAB PO PRN (20:49)
[2023-08-10] MEDS: Atorvastatin Calcium 40 MG TAB PO SCH (20:49)
[2023-08-10] MEDS: Donepezil HCl 10 MG TAB PO SCH (20:49)
[2023-08-10] MEDS: CO Q-10 CAPSULE 100 MG PO SCH (20:49)
[2023-08-10] MEDS: traMADol HCl 50 MG TAB PO PRN (20:51)
[2023-08-11] MEDS: Gabapentin 300 MG CAP PO SCH ×5 (03:27→20:35)
[2023-08-11] MEDS: Acetaminophen 500 MG TAB PO PRN (03:29)
[2023-08-11] MEDS: Levothyroxine Sodium 75 MCG TAB PO SCH (06:18)
[2023-08-11] MEDS: Furosemide 40 MG TAB PO SCH (06:18)
[2023-08-11 08:12] LABS: #Basophils 0.1 thou/uL (0.0-0.2); #Eosinphils 0.1 thou/uL (0.0-0.7); #Monocytes 0.9 thou/uL (0.11-0.59); #Neutrophils 9.7 thou/uL (1.40-6.50); %Basophils 0.4 % (0.0-1.0); %Lymphocytes 5.9 % (21.0-51.0); %Monocytes 8.2 % (0.0-10.0); Hematocrit 42.7 % (42.0-52.0); Hemoglobin 14.6 g/dL (14.0-18.0); Mean Corpuscular HGB CONC 34.2 g/dL (32.0-36.0); Mean Corpuscular Hemoglobin 32.7 pg (27.0-31.0); Mean Corpuscular Volume 95.5 fl (78.0-98.0); Mean Platelet Volume 9.5 fL (7.4-10.4); Platelet Count 129 10x3/uL (130-400); RBC Distribution Width 14.6 % (11.5-14.5); Red Blood Cell (RBC) Count 4.47 mill/uL (4.70-6.10); White Blood Cell (WBC) Count 11.5 10x3/uL (4.8-10.8)
[2023-08-11] MEDS ORDERED: FLU VACC QS2023(65UP)/MF59C/PF 60 MCG/0.5 ML SYRINGE IM ONE (09:00)
[2023-08-11] MEDS: Ferrous Sulfate 325 MG TAB PO SCH (09:03)
[2023-08-11] MEDS: Lysine 500 MG TAB PO SCH (09:03)
[2023-08-11] MEDS: Docusate 100 MG CAP PO SCH ×2 (09:04→20:34)
[2023-08-11] MEDS: Polyethylene Glycol 3350 17 GM Packet PO SCH (09:04)
[2023-08-11] MEDS: Trospium 20 MG TAB PO SCH ×2 (09:04→20:34)
[2023-08-11] MEDS ORDERED: Piperacillin/Tazobactam 3.375 GM in Sodium Chloride 0.9% 100 ML IVPB SCH (16:00)
[2023-08-11] MEDS ORDERED: Piperacillin/Tazobactam 4.5 GM in Sodium Chloride 0.9% 100 ML IVPB SCH (18:00)
[2023-08-11] MEDS: CO Q-10 CAPSULE 100 MG PO SCH (20:34)
[2023-08-11] MEDS: Piperacillin/Tazobactam 3.375 GM in Sodium Chloride 0.9% 100 ML IVPB SCH (20:34)
[2023-08-11] MEDS: Atorvastatin Calcium 40 MG TAB PO SCH (20:34)
[2023-08-11] MEDS: Donepezil HCl 10 MG TAB PO SCH (20:36)
[2023-08-11] MEDS: traMADol HCl 50 MG TAB PO PRN (20:36)
[2023-08-12] MEDS: Gabapentin 300 MG CAP PO SCH ×5 (03:24→20:59)
[2023-08-12] MEDS: Piperacillin/Tazobactam 3.375 GM in Sodium Chloride 0.9% 100 ML IVPB SCH ×3 (03:25→21:00)
[2023-08-12] MEDS: Levothyroxine Sodium 75 MCG TAB PO SCH (06:18)
[2023-08-12] MEDS: Ondansetron PF 4 MG/2 ML Vial IVP PRN ×3 (06:22→18:13)
[2023-08-12] MEDS: Furosemide 40 MG TAB PO SCH (06:22)
[2023-08-12] MEDS ORDERED: Ipratropium/Albuterol 3 ML NEB NEB PRN (08:20)
[2023-08-12 08:50] LABS: #Basophils 0.1 thou/uL (0.0-0.2); #Eosinphils 0.4 thou/uL (0.0-0.7); #Monocytes 0.7 thou/uL (0.11-0.59); #Neutrophils 7.1 thou/uL (1.40-6.50); %Basophils 0.7 % (0.0-1.0); %Eosinophils 4.2 % (0.0-10.0); %Monocytes 8.3 % (0.0-10.0); %Neutrophils 79.4 % (42.0-75.0); Hematocrit 40.1 % (42.0-52.0); Hemoglobin 13.6 g/dL (14.0-18.0); Mean Corpuscular HGB CONC 33.9 g/dL (32.0-36.0); Mean Corpuscular Volume 94.4 fl (78.0-98.0); Mean Platelet Volume 9.1 fL (7.4-10.4); Platelet Count 131 10x3/uL (130-400); RBC Distribution Width 14.3 % (11.5-14.5); Red Blood Cell (RBC) Count 4.25 mill/uL (4.70-6.10); White Blood Cell (WBC) Count 8.9 10x3/uL (4.8-10.8)
[2023-08-12 09:18] LABS: ALT (SGPT) 13 U/L (8-55); AST (SGOT) 17 U/L (5-34); Albumin 3.5 g/dL (3.4-4.8); Alkaline Phosphatase 56 U/L (40-110); Anion Gap 14 mmol/L (10-20); BUN (Urea Nitrogen) 19 mg/dL (8.4-25.7); Bilirubin, Total 2.1 mg/dL (0.2-1.2); Calc. Creatinine Clearance 84 mL/min (70-130); Carbon Dioxide 26 mmol/L (23-31); Chloride 99 mmol/L (98-107); Estimated GFR 82; Globulin 2.9 g/dL (2.4-3.5); Glucose 112 mg/dL (83-110); Magnesium 2.1 mg/dL (1.6-2.6); Phosphorus 3.4 mg/dL (2.3-4.7); Potassium 3.6 mmol/L (3.5-5.1); Protein, Total 6.4 g/dL (5.8-8.1); Sodium 135 mmol/L (136-145)
[2023-08-12 09:19] LABS: Troponin I 0.241 ng/mL (< 0.028)
[2023-08-12] MEDS ORDERED: Iopamidol-370 76% 500 ML MDV (1 ML CHARGE) ONE (09:30)
[2023-08-12] MEDS: Polyethylene Glycol 3350 17 GM Packet PO SCH (09:55)
[2023-08-12] MEDS: Docusate 100 MG CAP PO SCH ×2 (09:55→20:59)
[2023-08-12] MEDS: Trospium 20 MG TAB PO SCH ×2 (09:55→21:00)
[2023-08-12] MEDS: Lysine 500 MG TAB PO SCH (10:18)
[2023-08-12 12:17] LABS: Troponin I 0.215 ng/mL (< 0.028)
[2023-08-12] MEDS ORDERED: Sodium Chloride 0.9% 1,000 ML IV SCH (13:00)
[2023-08-12] MEDS ORDERED: Communication Order-Pharmacy FS ONE (13:27)
[2023-08-12] MEDS ORDERED: Heparin 10,000 UNITS/ 10 ML VIAL SLOW IVP SCH (13:45)
[2023-08-12] MEDS ORDERED: Heparin 25,000 units/D5W 500 ML IVPB SCH (13:45)
[2023-08-12] MEDS: Ipratropium/Albuterol 3 ML NEB NEB SCH ×4 (13:56→23:56)
[2023-08-12] MEDS: Artificial Tear Sol 15 ML BOT EA EYE SCH ×2 (14:40→21:02)
[2023-08-12 17:19] LABS: Hematocrit 41.2 % (42.0-52.0); Hemoglobin 14.1 g/dL (14.0-18.0); Platelet Count 118 10x3/uL (130-400)
[2023-08-12] MEDS: Atorvastatin Calcium 40 MG TAB PO SCH (20:59)
[2023-08-12] MEDS: CO Q-10 CAPSULE 100 MG PO SCH (21:00)
[2023-08-12] MEDS: Donepezil HCl 10 MG TAB PO SCH (21:05)
[2023-08-13] MEDS: Ipratropium/Albuterol 3 ML NEB NEB SCH ×4 (00:36→14:42)
[2023-08-13] MEDS: Gabapentin 300 MG CAP PO SCH ×5 (04:38→21:13)
[2023-08-13] MEDS: Piperacillin/Tazobactam 3.375 GM in Sodium Chloride 0.9% 100 ML IVPB SCH ×3 (04:38→21:12)
[2023-08-13 05:08] LABS: Hematocrit 39.5 % (42.0-52.0); Hemoglobin 13.3 g/dL (14.0-18.0); Mean Corpuscular HGB CONC 33.7 g/dL (32.0-36.0); Mean Corpuscular Hemoglobin 32.1 pg (27.0-31.0); Mean Corpuscular Volume 95.4 fl (78.0-98.0); RBC Distribution Width 14.3 % (11.5-14.5); Red Blood Cell (RBC) Count 4.14 mill/uL (4.70-6.10); White Blood Cell (WBC) Count 8.4 10x3/uL (4.8-10.8)
[2023-08-13 05:09] LABS: #Basophils 0.1 thou/uL (0.0-0.2); #Eosinphils 0.3 thou/uL (0.0-0.7); #Monocytes 0.8 thou/uL (0.11-0.59); #Neutrophils 6.5 thou/uL (1.40-6.50); %Basophils 0.7 % (0.0-1.0); %Eosinophils 3.5 % (0.0-10.0); %Lymphocytes 8.7 % (21.0-51.0); %Monocytes 9.5 % (0.0-10.0); %Neutrophils 77.2 % (42.0-75.0)
[2023-08-13 05:36] LABS: ALT (SGPT) 15 U/L (8-55); AST (SGOT) 17 U/L (5-34); Albumin 3.5 g/dL (3.4-4.8); Alkaline Phosphatase 62 U/L (40-110); Anion Gap 13 mmol/L (10-20); BUN (Urea Nitrogen) 18 mg/dL (8.4-25.7); Bilirubin, Total 1.5 mg/dL (0.2-1.2); Calc. Creatinine Clearance 79 mL/min (70-130); Calcium 9.1 mg/dL (7.8-10.44); Carbon Dioxide 28 mmol/L (23-31); Chloride 98 mmol/L (98-107); Estimated GFR 77; Globulin 2.8 g/dL (2.4-3.5); Glucose 103 mg/dL (83-110); Potassium 3.2 mmol/L (3.5-5.1); Protein, Total 6.3 g/dL (5.8-8.1); Sodium 136 mmol/L (136-145)
[2023-08-13 05:39] LABS: Platelet Count 129 10x3/uL (130-400)
[2023-08-13] MEDS: Furosemide 40 MG TAB PO SCH (06:44)
[2023-08-13] MEDS: Levothyroxine Sodium 75 MCG TAB PO SCH (06:44)
[2023-08-13] MEDS ORDERED: Electrolyte Replacement Protocol 1 EACH FS SCH (07:00)
[2023-08-13] MEDS ORDERED: Potassium Chloride 20 MEQ TAB PO SCH (08:00)
[2023-08-13] MEDS: Trospium 20 MG TAB PO SCH ×2 (08:57→21:13)
[2023-08-13] MEDS: Docusate 100 MG CAP PO SCH ×2 (08:57→21:14)
[2023-08-13] MEDS: Lysine 500 MG TAB PO SCH (08:57)
[2023-08-13] MEDS: Artificial Tear Sol 15 ML BOT EA EYE SCH ×4 (08:58→21:22)
[2023-08-13] MEDS: Polyethylene Glycol 3350 17 GM Packet PO SCH (08:58)
[2023-08-13] MEDS ORDERED: Ipratropium/Albuterol 3 ML NEB NEB PRN (15:15)
[2023-08-13] MEDS ORDERED: NS 0.9% w/ 20 MEQ KCL 1,000 ML/1,000 ML BAG IV SCH (15:45)
[2023-08-13] MEDS: CO Q-10 CAPSULE 100 MG PO SCH (21:13)
[2023-08-13] MEDS: Atorvastatin Calcium 40 MG TAB PO SCH (21:14)
[2023-08-13] MEDS: Donepezil HCl 10 MG TAB PO SCH (21:14)
[2023-08-14] MEDS: Piperacillin/Tazobactam 3.375 GM in Sodium Chloride 0.9% 100 ML IVPB SCH ×3 (03:02→21:17)
[2023-08-14] MEDS: Gabapentin 300 MG CAP PO SCH ×5 (03:02→21:18)
[2023-08-14] MEDS: Acetaminophen 500 MG TAB PO PRN ×2 (03:15→21:16)
[2023-08-14] MEDS: hydrALAZINE 20 MG/ML VIAL SLOW IVP PRN (04:20)
[2023-08-14 06:14] LABS: Anion Gap 13 mmol/L (10-20); BUN (Urea Nitrogen) 17 mg/dL (8.4-25.7); Calc. Creatinine Clearance 74 mL/min (70-130); Carbon Dioxide 25 mmol/L (23-31); Chloride 99 mmol/L (98-107); Estimated GFR 71; Glucose 106 mg/dL (83-110); Potassium 3.5 mmol/L (3.5-5.1); Sodium 133 mmol/L (136-145)
[2023-08-14] MEDS: Levothyroxine Sodium 75 MCG TAB PO SCH (06:27)
[2023-08-14 06:55] LABS: Magnesium 2.2 mg/dL (1.6-2.6)
[2023-08-14] MEDS ORDERED: Potassium Chloride 20 MEQ TAB PO SCH (08:00)
[2023-08-14] MEDS: Trospium 20 MG TAB PO SCH ×2 (09:20→21:16)
[2023-08-14] MEDS: Polyethylene Glycol 3350 17 GM Packet PO SCH (09:20)
[2023-08-14] MEDS: Artificial Tear Sol 15 ML BOT EA EYE SCH ×4 (09:21→21:24)
[2023-08-14] MEDS: Docusate 100 MG CAP PO SCH ×2 (09:21→21:18)
[2023-08-14] MEDS: Lysine 500 MG TAB PO SCH (17:37)
[2023-08-14] MEDS: Donepezil HCl 10 MG TAB PO SCH (21:15)
[2023-08-14] MEDS: Atorvastatin Calcium 40 MG TAB PO SCH (21:16)
[2023-08-14] MEDS: CO Q-10 CAPSULE 100 MG PO SCH (21:17)
[2023-08-14] MEDS: Apixaban 5 MG TAB PO SCH (21:17)
[2023-08-14] MEDS: traMADol HCl 50 MG TAB PO PRN (21:24)
[2023-08-15] MEDS: Acetaminophen 500 MG TAB PO PRN ×2 (01:19→19:52)
[2023-08-15] MEDS: Piperacillin/Tazobactam 3.375 GM in Sodium Chloride 0.9% 100 ML IVPB SCH ×3 (03:10→19:52)
[2023-08-15] MEDS: Gabapentin 300 MG CAP PO SCH ×5 (03:10→20:00)
[2023-08-15 05:35] LABS: #Basophils 0.1 thou/uL (0.0-0.2); #Eosinphils 0.7 thou/uL (0.0-0.7); #Monocytes 0.6 thou/uL (0.11-0.59); %Eosinophils 9.9 % (0.0-10.0); %Lymphocytes 11.9 % (21.0-51.0); %Neutrophils 68.9 % (42.0-75.0); Hematocrit 39.9 % (42.0-52.0); Hemoglobin 13.5 g/dL (14.0-18.0); Mean Corpuscular HGB CONC 33.8 g/dL (32.0-36.0); Mean Corpuscular Hemoglobin 32.1 pg (27.0-31.0); Mean Corpuscular Volume 94.8 fl (78.0-98.0); Mean Platelet Volume 9.4 fL (7.4-10.4); Platelet Count 152 10x3/uL (130-400); RBC Distribution Width 13.9 % (11.5-14.5); Red Blood Cell (RBC) Count 4.21 mill/uL (4.70-6.10); White Blood Cell (WBC) Count 7.3 10x3/uL (4.8-10.8)
[2023-08-15] MEDS: Levothyroxine Sodium 75 MCG TAB PO SCH (05:57)
[2023-08-15 05:59] LABS: Anion Gap 12 mmol/L (10-20); BUN (Urea Nitrogen) 16 mg/dL (8.4-25.7); Calc. Creatinine Clearance 83 mL/min (70-130); Calcium 8.9 mg/dL (7.8-10.44); Carbon Dioxide 24 mmol/L (23-31); Chloride 102 mmol/L (98-107); Estimated GFR 81; Glucose 105 mg/dL (83-110); Potassium 3.4 mmol/L (3.5-5.1); Sodium 135 mmol/L (136-145)
[2023-08-15] MEDS ORDERED: Potassium Chloride 20 MEQ TAB PO SCH (08:30)
[2023-08-15] MEDS ORDERED: Electrolyte Replacement Protocol FS PRN (08:30)
[2023-08-15] MEDS: Trospium 20 MG TAB PO SCH ×2 (11:10→20:00)
[2023-08-15] MEDS: Docusate 100 MG CAP PO SCH ×2 (11:10→20:00)
[2023-08-15] MEDS: Polyethylene Glycol 3350 17 GM Packet PO SCH (11:10)
[2023-08-15] MEDS: Artificial Tear Sol 15 ML BOT EA EYE SCH ×4 (11:10→20:00)
[2023-08-15] MEDS: Apixaban 5 MG TAB PO SCH ×2 (11:11→20:00)
[2023-08-15] MEDS: Lysine 500 MG TAB PO SCH (11:22)
[2023-08-15 17:14] LABS: Potassium 3.5 mmol/L (3.5-5.1)
[2023-08-15 19:12] LABS: CA Oxalate Dihydrate 30 % (.); CA Oxalate Monohydrate 65 % (.); Color Orange (.); Stone Weight 480 mg (.)
[2023-08-15] MEDS: CO Q-10 CAPSULE 100 MG PO SCH (20:00)
[2023-08-15] MEDS: Donepezil HCl 10 MG TAB PO SCH (20:00)
[2023-08-15] MEDS: Atorvastatin Calcium 40 MG TAB PO SCH (20:00)
[2023-08-16] MEDS: Gabapentin 300 MG CAP PO SCH ×4 (02:55→18:01)
[2023-08-16] MEDS: Piperacillin/Tazobactam 3.375 GM in Sodium Chloride 0.9% 100 ML IVPB SCH ×3 (03:00→19:30)
[2023-08-16 05:13] LABS: #Basophils 0.1 thou/uL (0.0-0.2); #Eosinphils 0.6 thou/uL (0.0-0.7); #Monocytes 0.6 thou/uL (0.11-0.59); #Neutrophils 5.5 thou/uL (1.40-6.50); %Basophils 0.8 % (0.0-1.0); %Eosinophils 7.5 % (0.0-10.0); %Lymphocytes 14.1 % (21.0-51.0); %Monocytes 7.9 % (0.0-10.0); %Neutrophils 69.4 % (42.0-75.0); Hematocrit 41.6 % (42.0-52.0); Hemoglobin 14.1 g/dL (14.0-18.0); Mean Corpuscular HGB CONC 33.9 g/dL (32.0-36.0); Mean Corpuscular Volume 94.5 fl (78.0-98.0); Mean Platelet Volume 8.8 fL (7.4-10.4); Platelet Count 156 10x3/uL (130-400); RBC Distribution Width 13.9 % (11.5-14.5); White Blood Cell (WBC) Count 7.9 10x3/uL (4.8-10.8)
[2023-08-16] MEDS: Levothyroxine Sodium 75 MCG TAB PO SCH (05:19)
[2023-08-16 05:40] LABS: Anion Gap 13 mmol/L (10-20); BUN (Urea Nitrogen) 13 mg/dL (8.4-25.7); Calc. Creatinine Clearance 81 mL/min (70-130); Calcium 8.9 mg/dL (7.8-10.44); Carbon Dioxide 23 mmol/L (23-31); Chloride 104 mmol/L (98-107); Estimated GFR 79; Glucose 101 mg/dL (83-110); Magnesium 2.1 mg/dL (1.6-2.6); Sodium 136 mmol/L (136-145)
[2023-08-16 05:41] LABS: Phosphorus 2.9 mg/dL (2.3-4.7)
[2023-08-16] MEDS: Artificial Tear Sol 15 ML BOT EA EYE SCH ×4 (08:57→20:02)
[2023-08-16] MEDS: Docusate 100 MG CAP PO SCH ×2 (08:57→20:03)
[2023-08-16] MEDS: Trospium 20 MG TAB PO SCH ×2 (08:57→20:03)
[2023-08-16] MEDS: Apixaban 5 MG TAB PO SCH ×2 (08:57→20:03)
[2023-08-16] MEDS: Polyethylene Glycol 3350 17 GM Packet PO SCH (08:59)
[2023-08-16] MEDS: Lysine 500 MG TAB PO SCH (10:04)
[2023-08-16] MEDS: Lisinopril 5 MG TAB PO PRN (10:04)
[2023-08-16] MEDS: Acetaminophen 500 MG TAB PO PRN (12:52)
[2023-08-16] MEDS ORDERED: Lisinopril 10 MG TAB PO SCH (16:15)
[2023-08-16] MEDS: Atorvastatin Calcium 40 MG TAB PO SCH (20:03)
[2023-08-16] MEDS: Gabapentin 400 MG CAP PO SCH (20:03)
[2023-08-16] MEDS: Donepezil HCl 10 MG TAB PO SCH (20:03)
[2023-08-16] MEDS: CO Q-10 CAPSULE 100 MG PO SCH (20:03)
[2023-08-17] MEDS: Gabapentin 300 MG CAP PO SCH ×4 (03:06→18:22)
[2023-08-17] MEDS: hydrALAZINE 20 MG/ML VIAL SLOW IVP PRN (03:07)
[2023-08-17] MEDS: Piperacillin/Tazobactam 3.375 GM in Sodium Chloride 0.9% 100 ML IVPB SCH ×3 (03:07→20:02)
[2023-08-17 04:34] LABS: #Basophils 0.1 thou/uL (0.0-0.2); #Eosinphils 0.5 thou/uL (0.0-0.7); #Monocytes 0.6 thou/uL (0.11-0.59); #Neutrophils 6.2 thou/uL (1.40-6.50); %Basophils 0.9 % (0.0-1.0); %Eosinophils 5.3 % (0.0-10.0); %Lymphocytes 13.1 % (21.0-51.0); %Monocytes 7.2 % (0.0-10.0); %Neutrophils 73.1 % (42.0-75.0); Hematocrit 41.1 % (42.0-52.0); Hemoglobin 14.1 g/dL (14.0-18.0); Mean Corpuscular HGB CONC 34.3 g/dL (32.0-36.0); Mean Corpuscular Hemoglobin 31.8 pg (27.0-31.0); Mean Corpuscular Volume 92.6 fl (78.0-98.0); Mean Platelet Volume 9.3 fL (7.4-10.4); Platelet Count 175 10x3/uL (130-400); RBC Distribution Width 13.6 % (11.5-14.5); Red Blood Cell (RBC) Count 4.44 mill/uL (4.70-6.10); White Blood Cell (WBC) Count 8.5 10x3/uL (4.8-10.8)
[2023-08-17 04:58] LABS: Anion Gap 13 mmol/L (10-20); BUN (Urea Nitrogen) 14 mg/dL (8.4-25.7); Calc. Creatinine Clearance 78 mL/min (70-130); Calcium 8.9 mg/dL (7.8-10.44); Carbon Dioxide 23 mmol/L (23-31); Chloride 104 mmol/L (98-107); Estimated GFR 76; Glucose 101 mg/dL (83-110); Potassium 3.5 mmol/L (3.5-5.1); Sodium 136 mmol/L (136-145)
[2023-08-17] MEDS: Levothyroxine Sodium 75 MCG TAB PO SCH (05:54)
[2023-08-17] MEDS: Lisinopril 20 MG TAB PO SCH (09:56)
[2023-08-17] MEDS: Docusate 100 MG CAP PO SCH ×2 (09:57→20:03)
[2023-08-17] MEDS: Apixaban 5 MG TAB PO SCH ×2 (09:57→20:02)
[2023-08-17] MEDS: Lysine 500 MG TAB PO SCH (09:58)
[2023-08-17] MEDS: Acetaminophen 500 MG TAB PO PRN (09:58)
[2023-08-17] MEDS: Trospium 20 MG TAB PO SCH ×2 (09:58→20:02)
[2023-08-17] MEDS: Artificial Tear Sol 15 ML BOT EA EYE SCH ×4 (09:59→20:20)
[2023-08-17] MEDS: Polyethylene Glycol 3350 17 GM Packet PO SCH (10:03)
[2023-08-17] MEDS ORDERED: Potassium Chloride 20 MEQ TAB PO SCH (14:00)
[2023-08-17] MEDS: Gabapentin 400 MG CAP PO SCH (20:01)
[2023-08-17] MEDS: Atorvastatin Calcium 40 MG TAB PO SCH (20:02)
[2023-08-17] MEDS: CO Q-10 CAPSULE 100 MG PO SCH (20:02)
[2023-08-17] MEDS: Donepezil HCl 10 MG TAB PO SCH (20:02)
[2023-08-17 22:24] LABS: Potassium 3.9 mmol/L (3.5-5.1)
[2023-08-18] MEDS: Gabapentin 300 MG CAP PO SCH ×4 (03:15→17:57)
[2023-08-18] MEDS: Piperacillin/Tazobactam 3.375 GM in Sodium Chloride 0.9% 100 ML IVPB SCH ×3 (03:15→21:12)
[2023-08-18 05:44] LABS: Hematocrit 41.5 % (42.0-52.0); Hemoglobin 14.1 g/dL (14.0-18.0); Platelet Count 170 10x3/uL (130-400)
[2023-08-18] MEDS: Levothyroxine Sodium 75 MCG TAB PO SCH (06:06)
[2023-08-18] MEDS: hydrALAZINE 20 MG/ML VIAL SLOW IVP PRN (06:10)
[2023-08-18] MEDS: Trospium 20 MG TAB PO SCH ×2 (10:11→21:11)
[2023-08-18] MEDS: Lisinopril 20 MG TAB PO SCH (10:11)
[2023-08-18] MEDS: Docusate 100 MG CAP PO SCH ×2 (10:11→21:11)
[2023-08-18] MEDS: Apixaban 5 MG TAB PO SCH ×2 (10:12→21:11)
[2023-08-18] MEDS: Artificial Tear Sol 15 ML BOT EA EYE SCH ×2 (10:12→12:43)
[2023-08-18] MEDS: Lysine 500 MG TAB PO SCH (10:12)
[2023-08-18] MEDS: Polyethylene Glycol 3350 17 GM Packet PO SCH (10:42)
[2023-08-18] MEDS: Donepezil HCl 10 MG TAB PO SCH (21:11)
[2023-08-18] MEDS: Atorvastatin Calcium 40 MG TAB PO SCH (21:11)
[2023-08-18] MEDS: CO Q-10 CAPSULE 100 MG PO SCH (21:11)
[2023-08-18] MEDS: Gabapentin 400 MG CAP PO SCH (21:11)
[2023-08-19] MEDS: Gabapentin 300 MG CAP PO SCH ×4 (03:33→17:47)
[2023-08-19] MEDS: Piperacillin/Tazobactam 3.375 GM in Sodium Chloride 0.9% 100 ML IVPB SCH ×2 (03:53→11:58)
[2023-08-19] MEDS: Levothyroxine Sodium 75 MCG TAB PO SCH (06:32)
[2023-08-19] MEDS: Lysine 500 MG TAB PO SCH (08:54)
[2023-08-19] MEDS: Apixaban 5 MG TAB PO SCH ×2 (08:54→20:51)
[2023-08-19] MEDS: Trospium 20 MG TAB PO SCH ×2 (08:54→20:50)
[2023-08-19] MEDS: Lisinopril 20 MG TAB PO SCH (08:54)
[2023-08-19] MEDS: Docusate 100 MG CAP PO SCH ×2 (08:54→20:51)
[2023-08-19] MEDS: Artificial Tear Sol 15 ML BOT EA EYE SCH (08:55)
[2023-08-19] MEDS: Polyethylene Glycol 3350 17 GM Packet PO SCH (11:39)
[2023-08-19] MEDS: CO Q-10 CAPSULE 100 MG PO SCH (20:50)
[2023-08-19] MEDS: Gabapentin 400 MG CAP PO SCH (20:51)
[2023-08-19] MEDS: Atorvastatin Calcium 40 MG TAB PO SCH (20:51)
[2023-08-19] MEDS: Donepezil HCl 10 MG TAB PO SCH (20:51)
[2023-08-20] MEDS: Gabapentin 300 MG CAP PO SCH ×3 (02:41→12:50)
[2023-08-20 04:02] VITALS: TEMP 97.1
[2023-08-20] MEDS: Levothyroxine Sodium 75 MCG TAB PO SCH (05:58)
[2023-08-20] MEDS: Artificial Tear Sol 15 ML BOT EA EYE SCH (10:20)
[2023-08-20] MEDS: Lysine 500 MG TAB PO SCH (10:20)
[2023-08-20] MEDS: Trospium 20 MG TAB PO SCH (10:28)
[2023-08-20] MEDS: Polyethylene Glycol 3350 17 GM Packet PO SCH (10:29)
[2023-08-20] MEDS: Docusate 100 MG CAP PO SCH (10:29)
[2023-08-20] MEDS: Lisinopril 20 MG TAB PO SCH (10:29)
[2023-08-20] MEDS: Apixaban 5 MG TAB PO SCH (10:29)
[2023-08-20 14:09] VITALS: BP 148/82
== END 2023-08-20 15:35 | DRG 665 ==
LOC: SDC 08:13 → SURG B 14:33 → OBSVTOIN 08-09 15:57 → 2SE 08-12 15:45
PROVIDERS: ADMIT Urology; ATTEND Internal Medicine
PROC: 0VT08ZZ Resection of Prostate, Via Natural or Artificial Opening Endoscopic (ICD-10-PCS; principal; 2023-08-08)
PROC: 0TCB8ZZ Extirpation of Matter from Bladder, Via Natural or Artificial Opening Endoscopic (ICD-10-PCS; 2023-08-08)
PROC: 3E033XZ Introduction of Vasopressor into Peripheral Vein, Percutaneous Approach (ICD-10-PCS; 2023-08-08)
DX: N21.0 Calculus in bladder (principal); I26.99 Other pulmonary embolism without acute cor pulmonale; J18.9 Pneumonia, unspecified organism; J69.0 Pneumonitis due to inhalation of food and vomit; J95.89 Other postprocedural complications and disorders of respiratory system, not elsewhere classified; N40.1 Benign prostatic hyperplasia with lower urinary tract symptoms; Z66 Do not resuscitate; I25.10 Atherosclerotic heart disease of native coronary artery without angina pectoris; G47.33 Obstructive sleep apnea (adult) (pediatric); E78.5 Hyperlipidemia, unspecified; G62.9 Polyneuropathy, unspecified; E03.9 Hypothyroidism, unspecified; M48.00 Spinal stenosis, site unspecified; R77.8 Other specified abnormalities of plasma proteins; I50.9 Heart failure, unspecified; I11.0 Hypertensive heart disease with heart failure; E87.6 Hypokalemia; G31.84 Mild cognitive impairment of uncertain or unknown etiology; G31.01 Pick's disease; R31.0 Gross hematuria; M54.9 Dorsalgia, unspecified; G89.29 Other chronic pain; Z88.2 Allergy status to sulfonamides; Z88.8 Allergy status to other drugs, medicaments and biological substances; Z98.890 Other specified postprocedural states; Z90.49 Acquired absence of other specified parts of digestive tract; Z85.038 Personal history of other malignant neoplasm of large intestine
CPT/HCPCS: 36415; 36416; 71045; 71275; 80048; 80053; 82365; 83735; 83880; 84100; 84443; 84484; 85014; 85018; 85025; 85049; 88300; 88305; 93005; 93010; 93306; 93970; 94640; J0360; J1650; J1956; J2405; J2543; J2704; J3480; J3490; J7050; J7611; J7620; Q9967

== ENCOUNTER 2023-09-03 11:00 | Outpatient (CLI) | payer MEDICARE, OTHER | END 2023-09-03 11:01 | disposition home or self-care (01) | LOC: PET 11:00 | PROVIDERS: ATTEND Internal Medicine Hematology & Oncology | DX: C18.0 Malignant neoplasm of cecum (principal); R91.1 Solitary pulmonary nodule; N13.30 Unspecified hydronephrosis | CPT/HCPCS: 78815; A9552 ==

== ENCOUNTER 2023-11-01 10:09 | Outpatient (CLI) | payer MEDICARE, OTHER ==
[2023-11-01 11:21] LABS: #Basophils 0.1 10x3/uL (0.0-0.2); #Eosinphils 0.2 10x3/uL (0.0-0.5); #Monocytes 0.7 10x3/uL (0.0-1.1); #Neutrophils 6.1 10x3/uL (1.5-8.4); %Basophils 0.7 % (0.0-2.0); %Eosinophils 2.5 % (0.0-6.0); %Lymphocytes 14.7 % (18.0-47.0); %Monocytes 8.7 % (0.0-10.0); %Neutrophils 72.9 % (40.0-75.0); Hematocrit 40.5 % (38.8-50.0); Mean Corpuscular HGB CONC 32.1 g/dL (32.0-36.0); Mean Corpuscular Hemoglobin 30.5 pg (27.0-33.0); Mean Corpuscular Volume 95.1 fl (81.2-95.1); Mean Platelet Volume 9.4 fl (7.4-10.4); Platelet Count 176 10x3/uL (150-450); RBC Distribution Width 14.7 % (11.5-14.5); Red Blood Cell (RBC) Count 4.26 10x6/uL (4.32-5.72); White Blood Cell (WBC) Count 8.4 10x3/uL (3.5-10.5)
[2023-11-01 11:44] LABS: Anion Gap 14 mmol/L (10-20); BUN (Urea Nitrogen) 15 mg/dL (8.4-25.7); Calc. Creatinine Clearance 0 mL/min (70-130); Calcium 9.6 mg/dL (7.8-10.44); Carbon Dioxide 27 mmol/L (23-31); Chloride 101 mmol/L (98-107); Estimated GFR 59; Glucose 107 mg/dL (83-110); Potassium 4.6 mmol/L (3.5-5.1); Sodium 137 mmol/L (136-145)
== END 2023-11-01 10:10 | disposition home or self-care (01) ==
LOC: LABBT 10:09
PROVIDERS: ATTEND Internal Medicine Cardiovascular Disease
DX: Z01.818 Encounter for other preprocedural examination (principal); I48.91 Unspecified atrial fibrillation
CPT/HCPCS: 80048; 85025; 93005; 93010

== ENCOUNTER 2023-11-04 05:52 | Day surgery (SDC) | payer MEDICARE, OTHER ==
[2023-11-01 10:35] VITALS: BMI 32.5
[2023-11-04] MEDS ORDERED: PROPOFOL 200 MG/20 ML VIAL ONE (08:21)
[2023-11-04] MEDS ORDERED: ePHEDrine Sulfate 50 MG/10 ML VIAL ONE (08:21)
[2023-11-04] MEDS ORDERED: PHENYLEPHRINE-NS 100 MCG/ML 10 ML SYRINGE ONE (08:21)
== END 2023-11-04 09:52 | disposition home or self-care (01) ==
LOC: SDC 05:52
PROVIDERS: ATTEND Internal Medicine Cardiovascular Disease
PROC: B24BZZ4 Ultrasonography of Heart with Aorta, Transesophageal (ICD-10-PCS; principal; 2023-11-04)
DX: I48.0 Paroxysmal atrial fibrillation (principal); I70.0 Atherosclerosis of aorta; I26.93 Single subsegmental thrombotic pulmonary embolism without acute cor pulmonale; I25.10 Atherosclerotic heart disease of native coronary artery without angina pectoris; I35.1 Nonrheumatic aortic (valve) insufficiency; I35.0 Nonrheumatic aortic (valve) stenosis; I34.0 Nonrheumatic mitral (valve) insufficiency; E78.00 Pure hypercholesterolemia, unspecified; I10 Essential (primary) hypertension; E03.9 Hypothyroidism, unspecified; Z79.890 Hormone replacement therapy; Z79.01 Long term (current) use of anticoagulants; Z90.49 Acquired absence of other specified parts of digestive tract; Z85.038 Personal history of other malignant neoplasm of large intestine; Z79.899 Other long term (current) drug therapy; Z98.890 Other specified postprocedural states; Z87.891 Personal history of nicotine dependence; Z88.1 Allergy status to other antibiotic agents; Z88.2 Allergy status to sulfonamides; Z88.8 Allergy status to other drugs, medicaments and biological substances
CPT/HCPCS: 92960; 93005; 93010; 93312; J2704

== ENCOUNTER 2023-11-19 08:21 | Outpatient (CLI) | payer MEDICARE, OTHER ==
[2023-11-19] MEDS ORDERED: Iopamidol 370 76% 100 ML VIAL ONE (10:01)
== END 2023-11-19 08:22 | disposition home or self-care (01) ==
LOC: BICCT 08:21
PROVIDERS: ATTEND Internal Medicine Hematology & Oncology
DX: M25.532 Pain in left wrist (principal); C18.9 Malignant neoplasm of colon, unspecified; R91.1 Solitary pulmonary nodule; N28.1 Cyst of kidney, acquired; K80.20 Calculus of gallbladder without cholecystitis without obstruction; N32.89 Other specified disorders of bladder; S52.502D Unspecified fracture of the lower end of left radius, subsequent encounter for closed fracture with routine healing; M19.032 Primary osteoarthritis, left wrist
CPT/HCPCS: 71260; 74177

== ENCOUNTER 2024-02-28 09:28 | Outpatient (CLI) | payer MEDICARE, OTHER | END 2024-02-28 09:29 | disposition home or self-care (01) | LOC: BICRAD 09:28 | PROVIDERS: ATTEND Internal Medicine | DX: M79.671 Pain in right foot (principal); R07.81 Pleurodynia; M25.571 Pain in right ankle and joints of right foot; M41.9 Scoliosis, unspecified; M51.36 Other intervertebral disc degeneration, lumbar region; I70.0 Atherosclerosis of aorta; M19.012 Primary osteoarthritis, left shoulder; M19.011 Primary osteoarthritis, right shoulder ==

== ENCOUNTER 2024-03-24 10:47 | Observation (INO) | payer MEDICARE, OTHER ==
[~2024-03-24 10:47] MED LIST changes: -Iopamidol-370 76% 500 ML 1 ML ONE; +Iopamidol-370 76% 500 ML MDV (1 ML CHARGE) ONE
[2024-03-24] MEDS ORDERED: Furosemide 40 MG (4 mL) VIAL ONE (11:53)
[2024-03-24] MEDS ORDERED: Nitroglycerin 2% Ointment 1 INCH/1 GM Packet ONE (11:53)
[2024-03-24] MEDS ORDERED: Aspirin Chewable 81 MG TAB ONE (11:54)
[2024-03-24 12:05] LABS: #Basophils 0.05 10x3/uL (0.0-0.2); %Basophils 0.6 % (0.0-1.0); %Lymphocytes 12.6 % (21.0-51.0); %Monocytes 7.5 % (0.0-10.0); %Neutrophils 77.1 % (42.0-75.0); Hemoglobin 15.1 g/dL (14.0-18.0); Mean Corpuscular Hemoglobin 32.8 pg (27.0-31.0); Mean Corpuscular Volume 91.3 fL (78.0-98.0); Mean Platelet Volume 9.1 fL (7.4-10.4); Platelet Count 169 10x3/uL (130-400)
[2024-03-24] MEDS ORDERED: Gabapentin 300 MG CAP ONE (12:17)
[2024-03-24 12:24] LABS: ALT (SGPT) 22 U/L (8-55); AST (SGOT) 28 U/L (5-34); Albumin 3.9 g/dL (3.4-4.8); Alkaline Phosphatase 74 U/L (40-110); Anion Gap 14 mmol/L (10-20); BUN (Urea Nitrogen) 16 mg/dL (8.4-25.7); Calc. Creatinine Clearance 0 mL/min (70-130); Calcium 9.8 mg/dL (7.8-10.44); Carbon Dioxide 25 mmol/L (23-31); Chloride 103 mmol/L (98-107); Estimated GFR 65; Globulin 3.7 g/dL (2.4-3.5); Glucose 109 mg/dL (83-110); Lipase 236 U/L (8-78); Magnesium 2.1 mg/dL (1.6-2.6); Potassium 3.7 mmol/L (3.5-5.1); Protein, Total 7.6 g/dL (5.8-8.1); Sodium 138 mmol/L (136-145)
[2024-03-24 12:25] LABS: Troponin I 0.046 ng/mL (< 0.028)
[2024-03-24] MEDS ORDERED: Ondansetron PF 4 MG/2 ML Vial IVP PRN (12:46)
[2024-03-24] MEDS ORDERED: Calcium Carbonate 500 MG ChewTAB PO PRN (12:46)
[2024-03-24] MEDS ORDERED: Senokot S 8.6-50 MG TAB PO PRN (12:46)
[2024-03-24] MEDS ORDERED: Lisinopril 5 MG TAB PO PRN (12:48)
[2024-03-24] MEDS ORDERED: Ipratropium/Albuterol 3 ML NEB NEB PRN (14:15)
[2024-03-24 15:25] LABS: Troponin I 0.053 ng/mL (< 0.028)
[2024-03-24] MEDS: Gabapentin 300 MG CAP PO SCH (17:24)
[2024-03-24] MEDS: Isosorbide Dinitrate 20 MG TAB PO SCH (17:24)
[2024-03-24] MEDS: Dronedarone HCl 400 MG TAB PO SCH (17:25)
[2024-03-24] MEDS: Furosemide 40 MG (4 mL) VIAL SLOW IVP SCH (17:25)
[2024-03-24 18:06] LABS: Troponin I 0.053 ng/mL (< 0.028)
[2024-03-24] MEDS: Atorvastatin Calcium 40 MG TAB PO SCH (20:48)
[2024-03-24] MEDS: Acetaminophen 325 MG TAB PO PRN (20:48)
[2024-03-24] MEDS: Apixaban 5 MG TAB PO SCH (20:48)
[2024-03-24] MEDS: Donepezil HCl 10 MG TAB PO SCH (20:48)
[2024-03-24] MEDS: Gabapentin 400 MG CAP PO SCH (20:49)
[2024-03-24 21:19] VITALS: BMI 33.3
[2024-03-25 04:09] LABS: #Basophils 0.05 10x3/uL (0.0-0.2); %Basophils 0.5 % (0.0-1.0); %Eosinophils 1.9 % (0.0-10.0); %Lymphocytes 13.8 % (21.0-51.0); %Monocytes 8.5 % (0.0-10.0); Hematocrit 37.6 % (42.0-52.0); Mean Corpuscular HGB CONC 34.6 g/dL (32.0-36.0); Mean Corpuscular Volume 95.4 fL (78.0-98.0); Mean Platelet Volume 9.3 fL (7.4-10.4); Platelet Count 153 10x3/uL (130-400); RBC Distribution Width 14.2 % (11.5-14.5); Red Blood Cell (RBC) Count 3.94 mill/uL (4.70-6.10)
[2024-03-25 04:36] LABS: ALT (SGPT) 21 U/L (8-55); AST (SGOT) 26 U/L (5-34); Albumin 3.7 g/dL (3.4-4.8); Alkaline Phosphatase 68 U/L (40-110); Anion Gap 16 mmol/L (10-20); BUN (Urea Nitrogen) 23 mg/dL (8.4-25.7); Bilirubin, Total 0.9 mg/dL (0.2-1.2); Calc. Creatinine Clearance 57 mL/min (70-130); Calcium 9.5 mg/dL (7.8-10.44); Carbon Dioxide 23 mmol/L (23-31); Chloride 102 mmol/L (98-107); Estimated GFR 53; Globulin 3.2 g/dL (2.4-3.5); Glucose 108 mg/dL (83-110); Magnesium 2.2 mg/dL (1.6-2.6); Potassium 3.4 mmol/L (3.5-5.1); Protein, Total 6.9 g/dL (5.8-8.1); Sodium 138 mmol/L (136-145)
[2024-03-25] MEDS: Furosemide 40 MG (4 mL) VIAL SLOW IVP SCH (06:24)
[2024-03-25] MEDS: Potassium Chloride 20 MEQ TAB PO SCH (06:24)
[2024-03-25] MEDS: Levothyroxine Sodium 75 MCG TAB PO SCH (06:24)
[2024-03-25] MEDS: Ferrous Sulfate 325 MG TAB PO SCH (10:45)
[2024-03-25] MEDS: Gabapentin 300 MG CAP PO SCH (11:24)
[2024-03-25 11:43] VITALS: TEMP 97.5
[2024-03-25] MEDS: Pantoprazole DR 40 MG TAB PO SCH (12:02)
[2024-03-25] MEDS: Ketorolac Tromethamine 30 MG (1 mL) VIAL IVP SCH (12:02)
[2024-03-25 13:37] VITALS: BP 126/89
[2024-03-25] MEDS ORDERED: Gabapentin 300 MG CAP PO SCH (15:00)
[2024-03-25] MEDS ORDERED: Gabapentin 400 MG CAP PO SCH (21:00)
== END 2024-03-25 14:49 | disposition home or self-care (01) ==
LOC: SUATTDRO 10:47 → ERS 10:47 → 2NO 16:05
PROVIDERS: ADMIT Internal Medicine; ATTEND Family Medicine
DX: R07.9 Chest pain, unspecified (principal); R06.02 Shortness of breath; I10 Essential (primary) hypertension; E78.5 Hyperlipidemia, unspecified; I25.10 Atherosclerotic heart disease of native coronary artery without angina pectoris; I48.91 Unspecified atrial fibrillation; C18.9 Malignant neoplasm of colon, unspecified; F03.90 Unspecified dementia, unspecified severity, without behavioral disturbance, psychotic disturbance, mood disturbance, and anxiety; Z88.2 Allergy status to sulfonamides; Z88.8 Allergy status to other drugs, medicaments and biological substances; Z79.899 Other long term (current) drug therapy
CPT/HCPCS: 71045; 71275; 80053 ×2; 83690; 83735 ×2; 83880 ×2; 84484 ×2; 85025 ×2; 85379; 93005; 96375; 96376 ×2; G0378 ×3; J1885; J1940 ×2; Q9967; 36415; 80061

== ENCOUNTER 2024-04-06 14:56 | Inpatient (IN) | payer MEDICARE, OTHER ==
[2024-04-06 15:48] LABS: #Basophils 0.07 10x3/uL (0.0-0.2); %Basophils 0.8 % (0.0-1.0); %Eosinophils 3.3 % (0.0-10.0); %Lymphocytes 15.6 % (21.0-51.0); %Monocytes 8.6 % (0.0-10.0); %Neutrophils 71.2 % (42.0-75.0); Hematocrit 42.4 % (42.0-52.0); Hemoglobin 14.7 g/dL (14.0-18.0); Mean Corpuscular HGB CONC 34.7 g/dL (32.0-36.0); Mean Corpuscular Hemoglobin 33.9 pg (27.0-31.0); Mean Corpuscular Volume 97.7 fL (78.0-98.0); Platelet Count 167 10x3/uL (130-400); RBC Distribution Width 13.9 % (11.5-14.5); Red Blood Cell (RBC) Count 4.34 mill/uL (4.70-6.10)
[2024-04-06 16:22] LABS: Troponin I 0.036 ng/mL (< 0.028)
[2024-04-06 16:45] LABS: ALT (SGPT) 21 U/L (8-55); AST (SGOT) 32 U/L (5-34); Albumin 4.3 g/dL (3.4-4.8); Alkaline Phosphatase 73 U/L (40-110); Anion Gap 14 mmol/L (10-20); BUN (Urea Nitrogen) 19 mg/dL (8.4-25.7); Bilirubin, Total 0.7 mg/dL (0.2-1.2); Calc. Creatinine Clearance 0 mL/min (70-130); Calcium 9.9 mg/dL (7.8-10.44); Carbon Dioxide 25 mmol/L (23-31); Chloride 100 mmol/L (98-107); Estimated GFR 64; Glucose 83 mg/dL (83-110); Lipase 19 U/L (8-78); Potassium 4.2 mmol/L (3.5-5.1); Protein, Total 8.3 g/dL (5.8-8.1); Sodium 135 mmol/L (136-145)
[2024-04-06] MEDS ORDERED: Ketorolac Tromethamine 30 MG (1 mL) VIAL ONE (17:05)
[2024-04-06] MEDS ORDERED: Gabapentin 300 MG CAP ONE (18:53)
[2024-04-06] MEDS ORDERED: Ondansetron PF 4 MG/2 ML Vial ONE (18:53)
[2024-04-06] MEDS ORDERED: Morphine 4 MG/ML VIAL ONE (18:53)
[2024-04-06] MEDS ORDERED: Acetaminophen 325 MG TAB PO PRN (19:29)
[2024-04-06] MEDS ORDERED: Ondansetron ODT 4 MG TAB PO PRN (19:29)
[2024-04-06] MEDS ORDERED: Ondansetron PF 4 MG/2 ML Vial IVP PRN (19:29)
[2024-04-06 20:27] VITALS: BMI 33.3
[2024-04-06] MEDS: Apixaban 5 MG TAB PO SCH (21:37)
[2024-04-06] MEDS: Donepezil HCl 10 MG TAB PO SCH (21:37)
[2024-04-06] MEDS: Atorvastatin Calcium 40 MG TAB PO SCH (21:37)
[2024-04-06] MEDS: Gabapentin 400 MG CAP PO SCH (21:40)
[2024-04-06] MEDS: HYDROcodone/Acetaminophen 5/325 mg Tablet PO PRN (23:17)
[2024-04-07] MEDS: Gabapentin 300 MG CAP PO SCH (02:58)
[2024-04-07 05:27] LABS: #Basophils 0.07 10x3/uL (0.0-0.2); %Basophils 1.1 % (0.0-1.0); %Eosinophils 4.6 % (0.0-10.0); %Lymphocytes 20.9 % (21.0-51.0); %Monocytes 10.9 % (0.0-10.0); %Neutrophils 62.2 % (42.0-75.0); Hematocrit 37.1 % (42.0-52.0); Hemoglobin 12.8 g/dL (14.0-18.0); Mean Corpuscular HGB CONC 34.5 g/dL (32.0-36.0); Mean Corpuscular Hemoglobin 33.1 pg (27.0-31.0); Mean Corpuscular Volume 95.9 fL (78.0-98.0); Mean Platelet Volume 9.4 fL (7.4-10.4); Platelet Count 157 10x3/uL (130-400); RBC Distribution Width 14.1 % (11.5-14.5); Red Blood Cell (RBC) Count 3.87 mill/uL (4.70-6.10)
[2024-04-07 05:56] LABS: Anion Gap 11 mmol/L (10-20); BUN (Urea Nitrogen) 21 mg/dL (8.4-25.7); Calc. Creatinine Clearance 60 mL/min (70-130); Calcium 9.5 mg/dL (7.8-10.44); Carbon Dioxide 29 mmol/L (23-31); Chloride 100 mmol/L (98-107); Estimated GFR 57; Glucose 90 mg/dL (83-110); Potassium 3.6 mmol/L (3.5-5.1); Sodium 136 mmol/L (136-145)
[2024-04-07] MEDS: Levothyroxine Sodium 75 MCG TAB PO SCH (06:32)
[2024-04-07] MEDS: Morphine 4 MG/ML VIAL SLOW IVP PRN (09:08)
[2024-04-07] MEDS: Dronedarone HCl 400 MG TAB PO SCH (09:23)
[2024-04-07] MEDS: fentaNYL 25 mcg Patch TD SCH (10:14)
[2024-04-07] MEDS: Polyethylene Glycol 3350 17 GM Packet PO PRN (16:20)
[2024-04-07] MEDS: HYDROcodone/Acetaminophen 5/325 mg Tablet PO PRN (19:47)
[2024-04-08 05:06] LABS: #Basophils 0.04 10x3/uL (0.0-0.2); %Basophils 0.6 % (0.0-1.0); %Eosinophils 5.5 % (0.0-10.0); %Lymphocytes 18.5 % (21.0-51.0); %Monocytes 9.4 % (0.0-10.0); %Neutrophils 65.7 % (42.0-75.0); Hematocrit 38.7 % (42.0-52.0); Mean Corpuscular HGB CONC 33.6 g/dL (32.0-36.0); Mean Corpuscular Hemoglobin 32.3 pg (27.0-31.0); Mean Platelet Volume 8.9 fL (7.4-10.4); Platelet Count 131 10x3/uL (130-400); Red Blood Cell (RBC) Count 4.03 mill/uL (4.70-6.10)
[2024-04-08 05:22] LABS: Anion Gap 10 mmol/L (10-20); BUN (Urea Nitrogen) 21 mg/dL (8.4-25.7); Calc. Creatinine Clearance 66 mL/min (70-130); Calcium 9.7 mg/dL (7.8-10.44); Carbon Dioxide 31 mmol/L (23-31); Chloride 98 mmol/L (98-107); Estimated GFR 63; Glucose 102 mg/dL (83-110); Potassium 3.9 mmol/L (3.5-5.1); Sodium 135 mmol/L (136-145)
[2024-04-08] MEDS ORDERED: Iopamidol 370 76% 100 ML VIAL ONE (10:11)
[2024-04-08] MEDS: Furosemide 40 MG (4 mL) VIAL SLOW IVP SCH (12:43)
[2024-04-08] MEDS: Ipratropium/Albuterol 3 ML NEB NEB PRN (14:44)
[2024-04-08] MEDS: Acetaminophen 500 MG TAB PO SCH (16:17)
[2024-04-09 05:25] LABS: #Basophils 0.05 10x3/uL (0.0-0.2); %Basophils 0.7 % (0.0-1.0); %Eosinophils 3.8 % (0.0-10.0); %Lymphocytes 16.5 % (21.0-51.0); %Monocytes 11.4 % (0.0-10.0); %Neutrophils 67.5 % (42.0-75.0); Hematocrit 35.5 % (42.0-52.0); Hemoglobin 12.3 g/dL (14.0-18.0); Mean Corpuscular HGB CONC 34.6 g/dL (32.0-36.0); Mean Corpuscular Volume 95.2 fL (78.0-98.0); Mean Platelet Volume 9.4 fL (7.4-10.4); Platelet Count 139 10x3/uL (130-400); RBC Distribution Width 13.9 % (11.5-14.5); Red Blood Cell (RBC) Count 3.73 mill/uL (4.70-6.10)
[2024-04-09 06:02] LABS: Anion Gap 12 mmol/L (10-20); BUN (Urea Nitrogen) 22 mg/dL (8.4-25.7); Calc. Creatinine Clearance 58 mL/min (70-130); Calcium 9.3 mg/dL (7.8-10.44); Carbon Dioxide 27 mmol/L (23-31); Chloride 97 mmol/L (98-107); Estimated GFR 54; Glucose 98 mg/dL (83-110); Potassium 3.8 mmol/L (3.5-5.1); Sodium 132 mmol/L (136-145)
[2024-04-09] MEDS: Furosemide 40 MG (4 mL) VIAL SLOW IVP SCH (06:13)
[2024-04-09] MEDS: oxyCODONE 5 MG TAB PO PRN (07:15)
[2024-04-09] MEDS ORDERED: Magnevist 469MG/ML 20 ML VIAL ONE (11:59)
[2024-04-09] MEDS: fentaNYL 25 mcg Patch TD SCH (14:37)
[2024-04-09 15:18] LABS: Hemoglobin A2 2.2 % (1.8-3.2); Hemoglobin F 0 % (0.0-2.0)
[2024-04-09] MEDS ORDERED: Bisacodyl 5 MG TAB PO PRN (16:03)
[2024-04-09 16:13] LABS: Albumin 3.4 g/dL (2.9-4.4); Alpha 1 0.2 g/dL (0.0-0.4); Alpha 2 0.7 g/dL (0.4-1.0); Gamma 1.3 g/dL (0.4-1.8); Globulin, Total 3.3 g/dL (2.2-3.9); M-Spike Not Observed g/dL (Not Observed)
[2024-04-09] MEDS: Bisacodyl 5 MG TAB PO SCH (17:07)
[2024-04-09] MEDS: Glycerin Adult Supp. (24 ct jar) PR SCH (18:02)
[2024-04-09] MEDS: Senokot S 8.6-50 MG TAB PO SCH (21:04)
[2024-04-10 04:17] LABS: #Basophils 0.05 10x3/uL (0.0-0.2); %Basophils 0.7 % (0.0-1.0); %Eosinophils 3.6 % (0.0-10.0); %Lymphocytes 13.5 % (21.0-51.0); %Monocytes 9.5 % (0.0-10.0); %Neutrophils 72.6 % (42.0-75.0); Hematocrit 36.2 % (42.0-52.0); Hemoglobin 12.3 g/dL (14.0-18.0); Mean Corpuscular Hemoglobin 32.5 pg (27.0-31.0); Mean Corpuscular Volume 95.8 fL (78.0-98.0); Mean Platelet Volume 9.1 fL (7.4-10.4); Platelet Count 129 10x3/uL (130-400); RBC Distribution Width 13.8 % (11.5-14.5); Red Blood Cell (RBC) Count 3.78 mill/uL (4.70-6.10)
[2024-04-10 04:36] LABS: Anion Gap 12 mmol/L (10-20); BUN (Urea Nitrogen) 22 mg/dL (8.4-25.7); Calc. Creatinine Clearance 60 mL/min (70-130); Calcium 9.3 mg/dL (7.8-10.44); Carbon Dioxide 28 mmol/L (23-31); Chloride 98 mmol/L (98-107); Estimated GFR 57; Glucose 103 mg/dL (83-110); Potassium 3.8 mmol/L (3.5-5.1); Sodium 134 mmol/L (136-145)
[2024-04-11 05:54] LABS: #Basophils 0.05 10x3/uL (0.0-0.2); %Basophils 0.8 % (0.0-1.0); %Eosinophils 5.3 % (0.0-10.0); %Lymphocytes 12.8 % (21.0-51.0); %Monocytes 9.9 % (0.0-10.0); Hemoglobin 12.3 g/dL (14.0-18.0); Mean Corpuscular HGB CONC 33.2 g/dL (32.0-36.0); Mean Corpuscular Hemoglobin 32.5 pg (27.0-31.0); Mean Corpuscular Volume 97.6 fL (78.0-98.0); Platelet Count 131 10x3/uL (130-400); Red Blood Cell (RBC) Count 3.79 mill/uL (4.70-6.10)
[2024-04-11 06:32] LABS: Anion Gap 12 mmol/L (10-20); BUN (Urea Nitrogen) 22 mg/dL (8.4-25.7); Calc. Creatinine Clearance 58 mL/min (70-130); Calcium 9.4 mg/dL (7.8-10.44); Carbon Dioxide 29 mmol/L (23-31); Chloride 96 mmol/L (98-107); Estimated GFR 55; Glucose 99 mg/dL (83-110); Potassium 3.6 mmol/L (3.5-5.1); Sodium 133 mmol/L (136-145)
[2024-04-11] MEDS: Morphine 2 MG/ML VIAL SLOW IVP PRN (12:14)
[2024-04-12 08:38] LABS: #Basophils 0.04 10x3/uL (0.0-0.2); %Basophils 0.7 % (0.0-1.0); %Eosinophils 5.3 % (0.0-10.0); %Monocytes 10.6 % (0.0-10.0); %Neutrophils 71.2 % (42.0-75.0); Hematocrit 37.3 % (42.0-52.0); Hemoglobin 12.7 g/dL (14.0-18.0); Mean Corpuscular Hemoglobin 33.5 pg (27.0-31.0); Mean Corpuscular Volume 98.4 fL (78.0-98.0); Mean Platelet Volume 9.6 fL (7.4-10.4); Platelet Count 129 10x3/uL (130-400); RBC Distribution Width 13.9 % (11.5-14.5); Red Blood Cell (RBC) Count 3.79 mill/uL (4.70-6.10)
[2024-04-12 08:52] LABS: Anion Gap 12 mmol/L (10-20); BUN (Urea Nitrogen) 18 mg/dL (8.4-25.7); Calc. Creatinine Clearance 65 mL/min (70-130); Calcium 9.6 mg/dL (7.8-10.44); Carbon Dioxide 28 mmol/L (23-31); Chloride 100 mmol/L (98-107); Estimated GFR 62; Glucose 96 mg/dL (83-110); Potassium 3.6 mmol/L (3.5-5.1); Sodium 136 mmol/L (136-145)
[2024-04-12] MEDS: fentaNYL 50 mcg/hour Patch TD SCH (11:23)
[2024-04-13] MEDS: Morphine ER 15 MG TAB PO SCH (20:19)
[2024-04-14] MEDS: Acetaminophen 500 MG TAB PO SCH (11:43)
[2024-04-14 13:46] VITALS: BMI 33.2
[2024-04-15] MEDS: Morphine ER 30 MG TAB PO SCH (09:59)
[2024-04-15] MEDS: Senokot S 8.6-50 MG TAB PO SCH (23:37)
[2024-04-17] MEDS: oxyCODONE 5 MG TAB PO PRN (12:30)
[2024-04-17 15:22] VITALS: BP 107/62; TEMP 98.3
== END 2024-04-17 15:32 | disposition home or self-care (01) | DRG 551 ==
LOC: ERS 14:56 → MSONC 18:37 → OBSVTOIN 04-07 16:19
PROVIDERS: ADMIT Physician Assistant; ATTEND Internal Medicine Critical Care Medicine
DX: S22.051A Stable burst fracture of T5-T6 vertebra, initial encounter for closed fracture (principal); J81.0 Acute pulmonary edema; C18.9 Malignant neoplasm of colon, unspecified; C79.9 Secondary malignant neoplasm of unspecified site; I48.0 Paroxysmal atrial fibrillation; Z66 Do not resuscitate; Z51.5 Encounter for palliative care; F03.90 Unspecified dementia, unspecified severity, without behavioral disturbance, psychotic disturbance, mood disturbance, and anxiety; E78.5 Hyperlipidemia, unspecified; G62.9 Polyneuropathy, unspecified; I10 Essential (primary) hypertension; I25.10 Atherosclerotic heart disease of native coronary artery without angina pectoris; E03.9 Hypothyroidism, unspecified; Z88.2 Allergy status to sulfonamides; Z88.8 Allergy status to other drugs, medicaments and biological substances; Z79.899 Other long term (current) drug therapy; Z79.890 Hormone replacement therapy; Z98.890 Other specified postprocedural states; Z87.891 Personal history of nicotine dependence
CPT/HCPCS: 36415; 71045; 71260; 72125; 72128; 72131; 72157; 74177; 77014; 77290; 78306; 80048; 80053; 82378; 83021; 83690; 83880; 84153; 84155; 84165; 84484; 85025; 93005; 94640; 96374; 96375; 96376; A9503; A9579; G0378; J1885; J1940; J2270; J2272; J2405; J7620; Q9967

== ENCOUNTER 2024-04-19 12:57 | Inpatient (IN) | payer MEDICARE, OTHER ==
[2024-04-19 13:25] LABS: #Basophils Less than 0.03 10x3/uL (0.0-0.2); %Basophils 0.3 % (0.0-1.0); %Eosinophils 2.8 % (0.0-10.0); %Lymphocytes 6.5 % (21.0-51.0); %Neutrophils 81.9 % (42.0-75.0); Hematocrit 35.2 % (42.0-52.0); Hemoglobin 12.7 g/dL (14.0-18.0); Mean Corpuscular HGB CONC 36.1 g/dL (32.0-36.0); Mean Corpuscular Hemoglobin 33.5 pg (27.0-31.0); Mean Corpuscular Volume 92.9 fL (78.0-98.0); Mean Platelet Volume 9.2 fL (7.4-10.4); Platelet Count 160 10x3/uL (130-400); RBC Distribution Width 13.3 % (11.5-14.5); Red Blood Cell (RBC) Count 3.79 mill/uL (4.70-6.10)
[2024-04-19 13:48] LABS: ALT (SGPT) 17 U/L (8-55); AST (SGOT) 27 U/L (5-34); Albumin 3.3 g/dL (3.4-4.8); Alkaline Phosphatase 59 U/L (40-110); Anion Gap 14 mmol/L (10-20); BUN (Urea Nitrogen) 21 mg/dL (8.4-25.7); Bilirubin, Total 0.7 mg/dL (0.2-1.2); Calc. Creatinine Clearance 0 mL/min (70-130); Calcium 9.4 mg/dL (7.8-10.44); Carbon Dioxide 21 mmol/L (23-31); Chloride 102 mmol/L (98-107); Estimated GFR 69; Globulin 3.6 g/dL (2.4-3.5); Glucose 106 mg/dL (83-110); Magnesium 1.8 mg/dL (1.6-2.6); Potassium 3.3 mmol/L (3.5-5.1); Protein, Total 6.9 g/dL (5.8-8.1); Sodium 134 mmol/L (136-145)
[2024-04-19] MEDS ORDERED: Iopamidol 370 76% 100 ML VIAL ONE (14:13)
[2024-04-19 18:54] LABS: INR-International Normal Ratio 1.5; Prothrombin Time 17.8 sec (12.0-14.7)
[2024-04-19 18:55] LABS: PTT 36.2 sec (22.9-36.1)
[2024-04-19] MEDS ORDERED: Acetaminophen 325 MG TAB PO PRN (19:44)
[2024-04-19] MEDS ORDERED: Acetaminophen 650 MG Suppository PR PRN (19:44)
[2024-04-19] MEDS ORDERED: Ondansetron ODT 4 MG TAB PO PRN (19:44)
[2024-04-19] MEDS ORDERED: Electrolyte Replacement Protocol 1 EACH FS SCH (20:15)
[2024-04-19] MEDS: Morphine 4 MG/ML VIAL SLOW IVP PRN (21:40)
[2024-04-19] MEDS: Sodium Chloride 0.9% 1,000 ML IV SCH (21:41)
[2024-04-19] MEDS: cefTRIAXone\\ROCEPHIN 1 GM in Sodium Chloride 0.9% 100 ML IVPB SCH (21:41)
[2024-04-19] MEDS: Potassium Chloride 20 MEQ in Premix 1 BAG IVPB SCH (22:10)
[2024-04-19 22:38] VITALS: BMI 32.8
[2024-04-20] MEDS: Magnesium 2 GM/50 ML(in water) 2 GM in Premix 1 BAG IVPB SCH (00:08)
[2024-04-20 06:08] LABS: #Basophils 0.03 10x3/uL (0.0-0.2); %Basophils 0.5 % (0.0-1.0); %Eosinophils 5.6 % (0.0-10.0); %Lymphocytes 11.7 % (21.0-51.0); %Monocytes 10.5 % (0.0-10.0); Hematocrit 37.4 % (42.0-52.0); Hemoglobin 12.9 g/dL (14.0-18.0); Mean Corpuscular HGB CONC 34.5 g/dL (32.0-36.0); Mean Corpuscular Volume 95.7 fL (78.0-98.0); Mean Platelet Volume 9.2 fL (7.4-10.4); Platelet Count 171 10x3/uL (130-400); RBC Distribution Width 13.8 % (11.5-14.5); Red Blood Cell (RBC) Count 3.91 mill/uL (4.70-6.10)
[2024-04-20 07:05] LABS: Anion Gap 13 mmol/L (10-20); BUN (Urea Nitrogen) 18 mg/dL (8.4-25.7); Calc. Creatinine Clearance 75 mL/min (70-130); Calcium 9.2 mg/dL (7.8-10.44); Carbon Dioxide 24 mmol/L (23-31); Chloride 104 mmol/L (98-107); Estimated GFR 75; Glucose 101 mg/dL (83-110); Potassium 3.1 mmol/L (3.5-5.1); Sodium 138 mmol/L (136-145)
[2024-04-20] MEDS ORDERED: hydrALAZINE 20 MG/ML VIAL SLOW IVP PRN (08:36)
[2024-04-20] MEDS: metroNIDAZOLE 500 MG in Premix 1 BAG IVPB SCH (09:05)
[2024-04-20] MEDS: Ondansetron PF 4 MG/2 ML Vial IVP PRN (09:06)
[2024-04-20] MEDS ORDERED: Metoprolol Tartrate 5 MG (5 mL) VIAL IVP PRN (09:22)
[2024-04-20 11:03] VITALS: BMI 32.8
[2024-04-20] MEDS ORDERED: Morphine IR 10 MG/5 ML UDCUP PO PRN (11:15)
[2024-04-20] MEDS: Potassium Chloride 20 MEQ in Premix 1 BAG IVPB SCH (12:11)
[2024-04-20] MEDS: Morphine 4 MG/ML VIAL SLOW IVP PRN (12:27)
[2024-04-20] MEDS: Morphine IR 10 MG/5 ML UDCUP PO SCH (14:02)
[2024-04-20] MEDS: fentaNYL 50 mcg/hour Patch TD SCH (18:46)
[2024-04-20] MEDS: Morphine ER 30 MG TAB PO SCH (20:30)
[2024-04-21] MEDS: fentaNYL 50 mcg/hour Patch TD SCH (10:08)
[2024-04-21] MEDS: Metoclopramide 10 MG/10 ML UDCUP PO SCH (17:28)
[2024-04-22] MEDS: Labetalol HCl 100 MG/20 ML VIAL SLOW IVP PRN (08:05)
[2024-04-22] MEDS ORDERED: Lisinopril 5 MG TAB PO SCH (09:00)
[2024-04-22] MEDS: Lisinopril 10 MG TAB PO SCH (10:25)
[2024-04-22] MEDS: Dronedarone HCl 400 MG TAB PO SCH (17:10)
[2024-04-23] MEDS: Levothyroxine Sodium 75 MCG TAB PO SCH (05:47)
[2024-04-23] MEDS: metroNIDAZOLE 500 MG TAB PO SCH ×2 (05:48→05:50)
[2024-04-23 08:04] VITALS: TEMP 98
[2024-04-23 09:19] VITALS: BP 181/100
[2024-04-23] MEDS: NIFEdipine XL 90 MG ER.TAB PO SCH (09:31)
[2024-04-24] MEDS ORDERED: NIFEdipine XL 90 MG ER.TAB PO SCH (09:00)
== END 2024-04-23 09:18 | disposition hospice, inpatient (51) | DRG 394 ==
LOC: ERS 12:57 → SURG A 19:26 → OBSVTOIN 04-20 09:21
PROVIDERS: ADMIT Specialist; ATTEND Specialist
DX: K63.89 Other specified diseases of intestine (principal); C18.9 Malignant neoplasm of colon, unspecified; E03.9 Hypothyroidism, unspecified; G47.33 Obstructive sleep apnea (adult) (pediatric); I10 Essential (primary) hypertension; G62.9 Polyneuropathy, unspecified; K52.9 Noninfective gastroenteritis and colitis, unspecified; R29.6 Repeated falls; Z66 Do not resuscitate; F03.90 Unspecified dementia, unspecified severity, without behavioral disturbance, psychotic disturbance, mood disturbance, and anxiety; I48.91 Unspecified atrial fibrillation; I25.10 Atherosclerotic heart disease of native coronary artery without angina pectoris; E78.5 Hyperlipidemia, unspecified; Z92.3 Personal history of irradiation; Z88.2 Allergy status to sulfonamides; Z88.8 Allergy status to other drugs, medicaments and biological substances; Z79.899 Other long term (current) drug therapy; Z79.890 Hormone replacement therapy; Z79.01 Long term (current) use of anticoagulants; Z90.49 Acquired absence of other specified parts of digestive tract; Z87.891 Personal history of nicotine dependence; Z51.5 Encounter for palliative care; T50.995A Adverse effect of other drugs, medicaments and biological substances, initial encounter
CPT/HCPCS: 36415; 43753; 70450; 71045; 71260; 72125; 74177; 80048; 82550; 83605; 83735; 85025; 85610; 85730; 93005; 97139; J0696; J2270; J2405; J3475; J3480; J3490; J7050; Q9967